=== PATIENT | female | born 1950 | race Caucasian/White ===

== ENCOUNTER → 2018-01-11 10:16 | Outpatient (CLI) | payer MEDICARE, SELFPAY ==
--- NOTE | 2018-01-11 10:19 | BI_ITS ---
MAMMOGRAPHY - BILATERAL SCREENING REASON FOR EXAM: Female, 67 years old. Routine annual screening examination. PERTINENT HISTORY: Non-contributory. Prior stereotactic biopsy. TECHNIQUE: Digital bilateral breast rufina (3D mammographic acquisition) in the CC and MLO projections. 2-D mediolateral oblique (MLO) and craniocaudad (CC) views of both breasts were obtained. CAD: Full Field Digital Mammography with Computer Added Detection was performed. COMPARISON: Comparison is made with prior outside examination dated May 13, 2016. FINDINGS: Breast Composition: There are scattered areas of fibroglandular density. There are no dominant masses or suspicious calcifications. Stable secretory calcifications. No other significant abnormalities are identified. There has been no significant change since the prior study. BI/SCREENING MAMM (CAD), BILAT IMPRESSION: Stable bilateral screening mammogram. Yearly follow-up mammogram recommended. (A) ASSESSMENT CATEGORY: BIRADS Category 2: Benign. A letter regarding these results will be sent to the patient by the facility within 30 days. Approximately 10% of breast cancers are not detected by mammography. A normal mammogram should not delay biopsy of a clinically suspicious abnormality. [id number] Electronically Signed: Michael Hood MD at 11:29 EDT Tel [phone], Service support ,
== END ==
PROVIDERS: Visit Provider Obstetrics & Gynecology
DX: Z12.31 Encounter for screening mammogram for malignant neoplasm of breast (principal)
CPT/HCPCS: 77063; 77067

== ENCOUNTER 2020-09-25 11:12 | Outpatient (RCR) | payer MEDICARE, SELFPAY ==
[2020-09-25] MEDS: COVID-19 VACC, MRNA(PFIZER)/PF 30 MCG/0.3 ML SYRINGE IM (11:04)
[2020-10-16] MEDS: COVID-19 VACC, MRNA(PFIZER)/PF 30 MCG/0.3 ML SYRINGE IM (10:54)
== END 2020-12-23 23:59 ==
LOC: IMMUN 11:12
PROVIDERS: Referring Provider Family Medicine; Visit Provider Family Medicine
DX: Z23 Encounter for immunization (principal)
CPT/HCPCS: 0001A; 0002A; 91300

== ENCOUNTER 2021-07-20 14:17 | Outpatient (CLI) | payer MEDICARE, SELFPAY ==
[2021-07-24 13:56] LABS: HPV APTIMA, High Risk Negative (Negative)
== END 2021-07-20 23:59 | disposition home or self-care (01) ==
LOC: LABSPEC 14:19
PROVIDERS: Referring Provider Obstetrics & Gynecology; Visit Provider Obstetrics & Gynecology
DX: Z12.4 Encounter for screening for malignant neoplasm of cervix (principal)
CPT/HCPCS: 87624; 88175; G0145

== ENCOUNTER 2021-08-13 09:47 | Outpatient (CLI) | payer MEDICARE, SELFPAY ==
--- NOTE | 2021-08-13 09:52 | BI_ITS ---
MAMMOGRAPHY - BILATERAL SCREENING REASON FOR EXAM: Female, 70 years old. Routine annual screening examination. PERTINENT HISTORY: Non-contributory. TECHNIQUE: Digital bilateral breast ravi (3D mammographic acquisition) in the CC and MLO projections. 2-D mediolateral oblique (MLO) and craniocaudad (CC) views of both breasts were obtained. CAD: Full Field Digital Mammography with Computer Added Detection was performed. COMPARISON: Comparison is made with prior study dated 01/11/2018. FINDINGS: Breast Composition: There are scattered areas of fibroglandular density. There are no dominant masses or suspicious calcifications. No other significant abnormalities are identified. There has been no significant change since the prior study. BI/SCRN MAMM (CAD)W/RAVI BILAT IMPRESSION: Stable bilateral screening mammogram. Yearly follow-up mammogram recommended. (A) ASSESSMENT CATEGORY: BIRADS Category 1: Negative. A letter regarding these results will be sent to the patient by the facility within 30 days. Approximately 10% of breast cancers are not detected by mammography. A normal mammogram should not delay biopsy of a clinically suspicious abnormality. [id number] Electronically Signed: Michael Hood MD at 10:55 EST ,
[2021-08-13 09:53] LABS: Absolute Lymphocyte Count 1.94 X10^3/uL (0.83-4.51); Absolute Neutrophil Count 2.4 X10^3/uL (2.0-7.7); Basophil# 0.05 X10^3/uL; Eosinophil# 0.29 X10^3/uL; Eosinophils% 5.8 % (0-5); Hematocrit 41.3 % (37-47); Hemoglobin 13.7 g/dL (12.0-15.0); Lymphocyte # 1.94 X10^3/ul (0.83-4.51); Mean Corp Hgb Conc 33.2 g/dL (32-36); Mean Corpuscular Hgb 31.4 pg (27.0-32.0); Mean Corpuscular Volume 94.7 fL (81-99); Mean Platelet Vol. 8.9 fl (6.2-12.0); Monocyte# 0.29 X10^3/uL; Monocyte% 5.8 % (0-10); NRBC Flagged by Analyzer 0 % (0-5); Neutrophil # 2.39 X10^3/uL (2.7-7.7); Neutrophil % 48.2 % (47-70); Platelet Count 277 K/mm3 (150-450); RBC Distribution Width SD 42.2 fl (35.1-43.9); Red Blood Count 4.36 M/mm3 (4.2-5.4)
--- NOTE | 2021-08-13 09:56 | BD_ITS ---
STUDY: DUAL ENERGY X-RAY ABSORPTIOMETRY / DXA REASON FOR EXAM: Female, 70 years old. Estrogen deficiency TECHNIQUE: Bone Mineral Density (BMD) measurements of lumbar spine and bilateral hips were obtained. COMPARISON: None. FINDINGS: Lumbar Spine (L1-L4): g/cm2 (0.797) / T-score (-2.3) / Z-score (-0.3) Findings are suggestive of osteopenia with a high fracture risk. Left Femur Total: g/cm2 (0.700) / T-score (-2.0) / Z-score (-0.6) Left Femoral Neck: g/cm2 (0.626) / T-score (-2.0) / Z-score (-0.3) Right Femur Total: g/cm2 (0.732) / T-score (-1.7) / Z-score (-0.3) Right Femoral Neck: g/cm2 (0.617) / T-score (-2.1) / Z-score (0.4) BD/Dexa Bone Density Study IMPRESSION: The patient is considered osteopenic as outlined below according to World [place] Organization (WHO) criteria with a high fracture risk. Reference Information: The T-score is the number of standard deviations above or below the standard which is normal for young adults at their peak bone mineral density. The World Health Organization (WHO) interprets the T-scores as follows: Above -1 Normal bone density Between -1 and -2.5 Osteopenia Equal to / or below -2.5 Osteoporosis As a practical clinical guideline, osteopenia may be graded as follows: Mild -1 through -1.5 Moderate -1.6 through -2.0 Severe -2.1 through -2.4 The Z-score is the number of standard deviations above or below age-matched controls. A Z-score of less than -1.5 would be considered abnormal. References: 1. NIH Osteoporosis and Related Bone Diseases www osteo.org 2. International Society for Clinical Densitometry www iscd.org 3. National Osteoporosis Foundation www nof.org Electronically Signed: Michael Hood MD at 15:23 EST ,
[2021-08-13 10:38] LABS: Vitamin D,25 Hydroxy 57.3 ng/mL
[2021-08-13 11:12] LABS: AST(SGOT) 13 U/L (15-37); Alanine Aminotransfer ALT/SGPT 18 U/L (13-56); Albumin, Serum 3.6 g/dL (3.2-5.0); Alkaline Phosphatase 44 U/L (45-117); Anion Gap 7 (5-15); BUN 14 mg/dL (7-18); BUN/Creat Ratio 13.5 RATIO (10-20); Calcium,Total 9.1 mg/dL (8.5-10.1); Chloride 107 mmol/L (98-107); Cholesterol 256 mg/dL (200); Creatinine, Serum 1.04 mg/dL (0.55-1.02); EST Glomerular Filtration Rate 56 mL/min (>60); Est Glom Filt Rate - Afr Amer 68 mL/min (>60); Globulin 3.5 g/dL (2.2-4.2); Glucose 88 mg/dL (74-106); High Density Lipoprotein 62 mg/dL; Potassium 4.2 mmol/L (3.5-5.1); Protein, Total 7.1 g/dL (6.4-8.2); Sodium Level 140 mmol/L (136-145); Thyroid Stim Hormone (TSH) 2.64 uIU/mL (0.358-3.74); Triglycerides 124 mg/dL; Very Low Density Lipoprotein 25 mg/dL (5-40)
== END 2021-08-13 23:59 | disposition short-term general hospital (02) ==
LOC: OPBD 09:48
PROVIDERS: Referring Provider Obstetrics & Gynecology; Visit Provider Obstetrics & Gynecology
DX: Z01.419 Encounter for gynecological examination (general) (routine) without abnormal findings (principal); Z12.31 Encounter for screening mammogram for malignant neoplasm of breast; E28.39 Other primary ovarian failure; N81.11 Cystocele, midline
CPT/HCPCS: 36415; 77063; 77067; 77080; 80053; 80061; 82306; 84443; 85025

== ENCOUNTER → 2022-02-22 | Outpatient (CLI) | payer MEDICARE, SELFPAY ==
[2022-02-22 12:08] LABS: Absolute Neutrophil Count 3.9 X10^3/uL (2.0-7.7); Basophil# 0.05 X10^3/uL; Basophil% 0.7 % (0-1); Eosinophil# 0.28 X10^3/uL; Eosinophils% 4.1 % (0-5); Hematocrit 43.1 % (37-47); Hemoglobin 14.2 g/dL (12.0-15.0); Lymphocyte % 33.3 % (19-41); Mean Corp Hgb Conc 32.9 g/dL (32-36); Mean Corpuscular Hgb 31.6 pg (27.0-32.0); Mean Corpuscular Volume 95.8 fL (81-99); Monocyte# 0.33 X10^3/uL; Monocyte% 4.8 % (0-10); NRBC Flagged by Analyzer 0 % (0-5); Neutrophil # 3.92 X10^3/uL (2.7-7.7); Neutrophil % 56.8 % (47-70); Platelet Count 330 K/mm3 (150-450); RBC Distribution Width SD 42.4 fl (35.1-43.9); White Blood Count 6.9 K/mm3 (4.4-11.0)
[2022-02-22 12:47] LABS: AST(SGOT) 15 U/L (15-37); Alanine Aminotransfer ALT/SGPT 17 U/L (13-56); Albumin, Serum 3.7 g/dL (3.2-5.0); Alkaline Phosphatase 43 U/L (45-117); Anion Gap 4 (5-15); BUN 12 mg/dL (7-18); BUN/Creat Ratio 12.1 RATIO (10-20); Calcium,Total 9.5 mg/dL (8.5-10.1); Chloride 108 mmol/L (98-107); Cholesterol 247 mg/dL (200); Creatinine, Serum 0.99 mg/dL (0.55-1.02); EST Glomerular Filtration Rate 59 mL/min (>60); Est Glom Filt Rate - Afr Amer 71 mL/min (>60); Globulin 3.6 g/dL (2.2-4.2); Glucose 101 mg/dL (74-106); High Density Lipoprotein 61 mg/dL; Potassium 4.7 mmol/L (3.5-5.1); Protein, Total 7.3 g/dL (6.4-8.2); Sodium Level 141 mmol/L (136-145); Triglycerides 142 mg/dL; Very Low Density Lipoprotein 28 mg/dL (5-40)
== END | disposition home or self-care (01) ==
LOC: BIMLAB 11:35
PROVIDERS: PCP Internal Medicine; Referring Provider Internal Medicine; Visit Provider Internal Medicine
DX: E78.5 Hyperlipidemia, unspecified (principal)
CPT/HCPCS: 36415; 80053; 80061; 85025

== ENCOUNTER → 2022-11-02 | Outpatient (CLI) | payer MEDICARE, SELFPAY ==
[2022-11-02 16:02] LABS: Bacteria 0 SEEN /hpf (None Seen); Mucous, Urine 0 SEEN /hpf (<or=2+)
[2022-11-02 16:14] LABS: Color, Urine Yellow (Yellow); Glucose, Dipstick Normal (Normal); Ketone-Dipstick Negative (Negative); Leukocyte Esterase-Dipstick 500 /ul (Negative); Nitrite-Dipstick Negative (Negative); Occult Blood-Urine 50 /ul (Negative); Protein-Dipstick 15 mg/dl (Negative); Specific Gravity, Urine 1.005 (1.002-1.030); Urine Bilirubin Dipstick Negative (Negative); Urine Clarity Clear (Clear); Urine Urobilinogen Normal (Normal); Urine pH 6.5 (5.0 - 8.0)
[2022-11-02 16:21] LABS: Red Blood Cells-Urine 0-5 SEEN /hpf (0-5); White Blood Cells 50-100 SEEN /hpf (0-5)
[2022-11-02 16:22] LABS: Squamous Epithelial Cells - UA 0-5 SEEN /hpf (5-10)
== END | disposition home or self-care (01) ==
LOC: LABSPEC 15:19
PROVIDERS: PCP Internal Medicine; Referring Provider Physician Assistant Surgical; Visit Provider Physician Assistant Surgical
DX: R35.0 Frequency of micturition (principal)
CPT/HCPCS: 81001; 87077; 87086; 87088; 87186

== ENCOUNTER → 2022-11-03 | Outpatient (CLI) | payer MEDICARE, SELFPAY ==
--- NOTE | 2022-11-03 12:53 | BI_ITS ---
MAMMOGRAPHY - BILATERAL SCREENING REASON FOR EXAM: Female, 71 years old. Routine annual screening examination. PERTINENT HISTORY: Non-contributory. Remote right stereotactic breast biopsy. TECHNIQUE: Digital bilateral breast ravi (3D mammographic acquisition) in the CC and MLO projections. 2-D mediolateral oblique (MLO) and craniocaudad (CC) views of both breasts were obtained. CAD: Full Field Digital Mammography with Computer Added Detection was performed. COMPARISON: Comparison is made with prior study dated February 10, 2022 and January 11, 2018. FINDINGS: Breast Composition: There are scattered areas of fibroglandular density. There are no dominant masses or suspicious calcifications. Stable secretory calcifications in both breasts. No other significant abnormalities are identified. There has been no significant change since the prior study. BI/SCRN MAMM (CAD)W/RAVI BILAT IMPRESSION: Stable bilateral screening mammogram. Yearly follow-up mammogram recommended. (A) ASSESSMENT CATEGORY: BIRADS Category 2: Benign. A letter regarding these results will be sent to the patient by the facility within 30 days. Approximately 10% of breast cancers are not detected by mammography. A normal mammogram should not delay biopsy of a clinically suspicious abnormality. [id number] Electronically Signed: Michael Hood MD at 13:38 EDT ,
== END | disposition home or self-care (01) ==
LOC: OPBI 12:51
PROVIDERS: PCP Internal Medicine; Referring Provider Obstetrics & Gynecology; Visit Provider Obstetrics & Gynecology
DX: Z12.31 Encounter for screening mammogram for malignant neoplasm of breast (principal)
CPT/HCPCS: 77063; 77067

== ENCOUNTER → 2023-04-13 | Outpatient (CLI) | payer MEDICARE, SELFPAY ==
--- NOTE | 2023-04-13 09:15 | MRI_ITS ---
HISTORY: low back pain, tingling rt leg and foot TECHNIQUE: Multiplanar and multisequence MR images of the lumbar spine were obtained without intravenous contrast. 0 images. COMPARISON: XR 04/11/2023. FINDINGS: VERTEBRAE: Vertebral body heights maintained. Vertebral body hemangiomas of L2 and L3 incidentally noted. Degenerative bone marrow endplate changes of L4-5 and L5-S1. ALIGNMENT: 4 mm anterolisthesis of L4-5. CONUS: Normal morphology and position of the conus medullaris at L1. INTERVERTEBRAL DISCS: T11-12: Mild disc bulge without significant central canal stenosis or foraminal narrowing based on the sagittal images. T12-L1: No significant posterior disc protrusion, central canal stenosis, or foraminal narrowing based on the sagittal images. L1-2: No significant posterior disc protrusion, central canal stenosis, or foraminal narrowing. L2-3: Mild posterior disc bulge osteophyte complex with facet arthropathy resulting in minimal narrowing of the thecal sac and mild right foraminal narrowing. L3-4: Mild disc bulge with facet arthropathy resulting in mild central canal stenosis and bilateral foraminal narrowing. L4-5: Posterior disc bulge osteophyte complex with facet arthropathy superimposed on a listhesis resulting in markedly severe central canal stenosis, probable bilateral L5 nerve root impingement, and moderate left greater than right foraminal narrowing. L5-S1: Posterior disc bulge osteophyte complex with facet arthropathy resulting in minimal narrowing of the thecal sac and moderate bilateral foraminal narrowing SOFT TISSUES: Small synovial cysts posterior to the left L4-5 and L5-S1 facet. 1.2 cm Tarlov cyst at the S2 level. 5.7 cm right renal cyst. MRI/Spine Lumbar (Routine) IMPRESSION: Multilevel degenerative disc disease with markedly severe spinal canal stenosis, probable nerve root impingement, and moderate foraminal narrowing of L4-5. Electronically Signed: Candelaria Martinez MD at 16:01 EDT ,
== END | disposition home or self-care (01) ==
PROVIDERS: PCP Internal Medicine; Referring Provider Orthopaedic Surgery; Visit Provider Orthopaedic Surgery
DX: M43.10 Spondylolisthesis, site unspecified (principal); M54.50 Low back pain, unspecified
CPT/HCPCS: 72148

== ENCOUNTER → 2023-08-17 | Outpatient (CLI) | payer MEDICARE, SELFPAY ==
[2023-08-17 12:17] LABS: Bacteria 0 SEEN /hpf (None Seen); Mucous, Urine 0 SEEN /hpf (<or=2+)
[2023-08-17 15:36] LABS: Absolute Lymphocyte Count 2.55 X10^3/uL (0.83-4.51); Basophil# 0.07 X10^3/uL; Basophil% 0.9 % (0-1); Eosinophil# 0.39 X10^3/uL; Eosinophils% 5.3 % (0-5); Hematocrit 46.2 % (37-47); Hemoglobin 14.7 g/dL (12.0-15.0); Lymphocyte # 2.55 X10^3/ul (0.83-4.51); Lymphocyte % 34.6 % (19-41); Mean Corp Hgb Conc 31.8 g/dL (32-36); Mean Corpuscular Volume 97.5 fL (81-99); Mean Platelet Vol. 9.4 fl (6.2-12.0); Monocyte# 0.35 X10^3/uL; Monocyte% 4.7 % (0-10); NRBC Flagged by Analyzer 0 % (0-5); Neutrophil % 54.2 % (47-70); Platelet Count 379 K/mm3 (150-450); RBC Distribution Width CV 11.9 % (11.6-14.6); RBC Distribution Width SD 42.8 fl (35.1-43.9); Red Blood Count 4.74 M/mm3 (4.2-5.4); White Blood Count 7.4 K/mm3 (4.4-11.0)
[2023-08-17 15:39] LABS: Color, Urine Yellow (Yellow); Glucose, Dipstick Normal (Normal); Ketone-Dipstick Negative (Negative); Leukocyte Esterase-Dipstick 500 /ul (Negative); Nitrite-Dipstick Negative (Negative); Occult Blood-Urine 25 /ul (Negative); Protein-Dipstick 15 mg/dl (Negative); Specific Gravity, Urine 1.015 (1.002-1.030); Urine Bilirubin Dipstick Negative (Negative); Urine Clarity Clear (Clear); Urine Urobilinogen Normal (Normal)
[2023-08-17 16:04] LABS: ALB/GLOB Ratio 1.1 RATIO (0.9-2.4); AST(SGOT) 14 U/L (15-37); Alanine Aminotransfer ALT/SGPT 21 U/L (13-56); Albumin, Serum 4.1 g/dL (3.2-5.0); Alkaline Phosphatase 42 U/L (45-117); Anion Gap 5 (5-15); BUN 15 mg/dL (7-18); BUN/Creat Ratio 13.9 RATIO (10-20); Chloride 105 mmol/L (98-107); Cholesterol 309 mg/dL (200); Creatinine, Serum 1.08 mg/dL (0.55-1.02); EST Glomerular Filtration Rate 53 mL/min (>60); Est Glom Filt Rate - Afr Amer 64 mL/min (>60); Globulin 3.7 g/dL (2.2-4.2); Glucose 98 mg/dL (74-106); High Density Lipoprotein 66 mg/dL; Potassium 4.8 mmol/L (3.5-5.1); Protein, Total 7.8 g/dL (6.4-8.2); Sodium Level 138 mmol/L (136-145); Triglycerides 142 mg/dL; Very Low Density Lipoprotein 28 mg/dL (5-40)
[2023-08-17 16:13] LABS: Red Blood Cells-Urine 0-5 SEEN /hpf (0-5); Squamous Epithelial Cells - UA 5-10 SEEN /hpf (5-10); White Blood Cells 0-5 SEEN /hpf (0-5)
== END | disposition home or self-care (01) ==
LOC: BIMLAB 11:58
PROVIDERS: PCP Internal Medicine; Referring Provider Physician Assistant; Visit Provider Physician Assistant
DX: Z01.818 Encounter for other preprocedural examination (principal); E78.5 Hyperlipidemia, unspecified
CPT/HCPCS: 36415; 80053; 80061; 81001; 85025

== ENCOUNTER → 2023-12-30 | Outpatient (CLI) | payer MEDICARE, SELFPAY ==
[2023-12-30 11:41] LABS: Mucous, Urine 0 SEEN /hpf (<or=2+); Squamous Epithelial Cells - UA 0 SEEN /hpf (5-10); White Blood Cells 0 SEEN /hpf (0-5)
[2023-12-30 15:41] LABS: Color, Urine Yellow (Yellow); Glucose, Dipstick Normal (Normal); Ketone-Dipstick Negative (Negative); Leukocyte Esterase-Dipstick 25 /ul (Negative); Nitrite-Dipstick Negative (Negative); Occult Blood-Urine 50 /ul (Negative); Protein-Dipstick Negative (Negative); Urine Bilirubin Dipstick Negative (Negative); Urine Clarity Clear (Clear); Urine Urobilinogen Normal (Normal)
[2023-12-30 16:02] LABS: Bacteria RARE /hpf (None Seen); Red Blood Cells-Urine 0-5 SEEN /hpf (0-5)
[2023-12-31 01:35] LABS: ALB/GLOB Ratio 1.1 RATIO (0.9-2.4); AST(SGOT) 16 U/L (15-37); Alanine Aminotransfer ALT/SGPT 20 U/L (13-56); Albumin, Serum 3.9 g/dL (3.2-5.0); Alkaline Phosphatase 69 U/L (45-117); Anion Gap 7 (5-15); BUN 14 mg/dL (7-18); BUN/Creat Ratio 14.9 RATIO (10-20); Calcium,Total 9.2 mg/dL (8.5-10.1); Chloride 104 mmol/L (98-107); Cholesterol 164 mg/dL (200); Creatinine, Serum 0.94 mg/dL (0.55-1.02); EST Glomerular Filtration Rate 63 mL/min (>60); Est Glom Filt Rate - Afr Amer 76 mL/min (>60); Globulin 3.5 g/dL (2.2-4.2); Glucose 139 mg/dL (74-106); High Density Lipoprotein 51 mg/dL; Potassium 3.8 mmol/L (3.5-5.1); Protein, Total 7.4 g/dL (6.4-8.2); Sodium Level 140 mmol/L (136-145); Triglycerides 145 mg/dL; Very Low Density Lipoprotein 29 mg/dL (5-40)
== END | disposition home or self-care (01) ==
LOC: BIMLAB 11:40
PROVIDERS: PCP Internal Medicine; Visit Provider Nurse Practitioner
DX: E78.5 Hyperlipidemia, unspecified (principal); R31.9 Hematuria, unspecified
CPT/HCPCS: 36415; 80053; 80061; 81001

== ENCOUNTER → 2024-03-12 | Outpatient (CLI) | payer MEDICARE, SELFPAY ==
[2024-03-12 15:38] LABS: Vitamin D,25 Hydroxy 42.4 ng/mL
== END | disposition home or self-care (01) ==
LOC: BIMLAB 11:33
PROVIDERS: PCP Internal Medicine; Referring Provider Internal Medicine; Visit Provider Internal Medicine
DX: M85.80 Other specified disorders of bone density and structure, unspecified site (principal)
CPT/HCPCS: 36415; 82306

== ENCOUNTER → 2024-04-06 | Outpatient (CLI) | payer MEDICARE, SELFPAY ==
--- NOTE | 2024-04-06 09:52 | BI_ITS ---
MAMMOGRAPHY - BILATERAL SCREENING REASON FOR EXAM: Female, 73 years old. Routine annual screening examination. PERTINENT HISTORY: Non-contributory. History of remote right stereotactic breast biopsy. TECHNIQUE: Digital bilateral breast ravi (3D mammographic acquisition) in the CC and MLO projections. 2-D mediolateral oblique (MLO) and craniocaudad (CC) views of both breasts were obtained. CAD: Full Field Digital Mammography with Computer Added Detection was performed. COMPARISON: Comparison is made with prior study dated November 03, 2022 and August 13, 2021. FINDINGS: Breast Composition: There are scattered areas of fibroglandular density. There are no dominant masses or suspicious calcifications. Stable bilateral secretory calcifications. No other significant abnormalities are identified. There has been no significant change since the prior study. BI/SCRN MAMM (CAD)W/RAVI BILAT IMPRESSION: Stable bilateral screening mammogram. Yearly follow-up mammogram recommended. (A) ASSESSMENT CATEGORY: BIRADS Category 2: Benign. A letter regarding these results will be sent to the patient by the facility within 30 days. Approximately 10% of breast cancers are not detected by mammography. A normal mammogram should not delay biopsy of a clinically suspicious abnormality. [id number] Electronically Signed: Michael Hood MD at 10:53 EDT ,
--- NOTE | 2024-04-06 09:52 | BD_ITS ---
STUDY: DUAL ENERGY X-RAY ABSORPTIOMETRY / DXA REASON FOR EXAM: Female, 73 years old. Post- Menopausal TECHNIQUE: Bone Mineral Density (BMD) measurements of lumbar spine and bilateral hips were obtained. COMPARISON: Comparison is made with prior study dated genera 03/02/2022. FINDINGS: Lumbar Spine (L1-L4): g/cm2 (0.744) / T-score (-2.5) / Z-score (-0.4) Findings are suggestive of osteoporosis with a high fracture risk. Left Femur Total: g/cm2 (0.689) / T-score (-2.1) / Z-score (-0.5) Left Femoral Neck: g/cm2 (0.627) / T-score (-2.0) / Z-score (-0.1) Right Femur Total: g/cm2 (0.698) / T-score (-2.0) / Z-score (-0.4) Right Femoral Neck: g/cm2 (0.618) / T-score (-2.1) / Z-score (-0.2) The T-Scores on the most recent prior examination were: Lumbar Spine (L1-L4): There has been worsening of bone density since the previous examination. Left Femur Total: which represents a worsening of 1.7%. Right Femur Total: which represents a worsening of 4.6%. BD/Dexa Bone Density Study IMPRESSION: The patient is considered osteoporotic as outlined below according to World [place] Organization (WHO) criteria with a high fracture risk. There has been worsening of bone density since the previous examination. Reference Information: The T-score is the number of standard deviations above or below the standard which is normal for young adults at their peak bone mineral density. The World Health Organization (WHO) interprets the T-scores as follows: Above -1 Normal bone density Between -1 and -2.5 Osteopenia Equal to / or below -2.5 Osteoporosis As a practical clinical guideline, osteopenia may be graded as follows: Mild -1 through -1.5 Moderate -1.6 through -2.0 Severe -2.1 through -2.4 The Z-score is the number of standard deviations above or below age-matched controls. A Z-score of less than -1.5 would be considered abnormal. References: 1. NIH Osteoporosis and Related Bone Diseases www osteo.org 2. International Society for Clinical Densitometry www iscd.org 3. National Osteoporosis Foundation www nof.org Electronically Signed: Michael Hood MD at 13:10 EDT ,
== END | disposition home or self-care (01) ==
LOC: OPBD 09:51
PROVIDERS: PCP Internal Medicine; Referring Provider Internal Medicine; Visit Provider Internal Medicine
DX: Z12.31 Encounter for screening mammogram for malignant neoplasm of breast (principal); Z78.0 Asymptomatic menopausal state
CPT/HCPCS: 77063; 77067; 77080

== ENCOUNTER 2024-04-13 07:11 | Day surgery (SDC) | payer MEDICARE, SELFPAY ==
[2024-04-13] VITALS (7 sets, daily range): BP systolic 97–106; BP diastolic 63–72; PULSE 64–87; RESP 16; TEMP 36.2–36.9; O2SAT 98–100; BMI 20.7
--- NOTE | 2024-04-13 07:34 | PCM.PRE.AN2 ---
ASA Classification* ASA Classification ASA Classification: 2 Assessment & Plan Anesthesia* Anesthesia Assessment Anesthesia Assessment: Discussed sedation and/or anesthesia options, risks, benefits, and alternatives with patient/parents/legal guardian/POA. Questions invited. The patient/parents/legal guardian/POA seems to understand and agrees to proceed with anesthesia plan. Reviewed the physical assessment, medical history, allergy history and patient home medications list prior to surgery/procedure/anesthetic and documented any changes. Performed airway and anesthesia risk assessments. Anesthesia Type Anesthesia Type: MAC Anesthesia Focused Assessment* Airway Assessment Mouth opens: >3 cm Mallampati Score: II Focused Labs Anesthesia Preop lab: CBC WBC 7.4 K/mm3 (4.4-11.0) 08/17/23 11:58 RBC 4.74 M/mm3 (4.2-5.4) 08/17/23 11:58 Hgb 14.7 g/dL (12.0-15.0) 08/17/23 11:58 Hct 46.2 % (37-47) 08/17/23 11:58 Plt Count 379 K/mm3 (150-450) 08/17/23 11:58 CHEMISTRY Potassium 3.8 mmol/L (3.5-5.1) 12/30/23 11:40 Sodium 140 mmol/L (136-145) 12/30/23 11:40 BUN 14 mg/dL (7-18) 12/30/23 11:40 Creatinine 0.94 mg/dL (0.55-1.02) 12/30/23 11:40 Glucose 139 mg/dL (74-106) H 12/30/23 11:40 TSH 2.64 uIU/mL (0.358-3.74) 08/13/21 09:45 COAG Pre-Assessment Diagnosis/Proposed Procedure Planned Operative Procedure(s): COLONOSCOPY-OA Anesthesia History Anesthesia History - pin inserter regulator: Anesthesia History - pin inserter regulator Hx Hospitalization Yes: 10/2023 BACK SURGERY 04/11/24 10:43 Any Problems With Anesthesia No 04/11/24 10:43 Cholinesterase deficiency No 04/11/24 10:43 You/Your Family Experience No 04/11/24 10:43 fever (hyperthermia) with Relationship Recent Exposure to Contagious Disease Does patient have nerve No 04/11/24 10:43 stimulator Patient instructed to have device shut off --Does patient have Pacemaker or ICD? When Was Last Pacemaker Check QUESTION #4 FULL TEXT: You/Your Family Experience fever (hyperthermia) with Anesthesia Last Oral Intake Last Oral intake: Last Oral Intake NPO since Meds taken in AM with sips of water? Meds patient instructed to take am of surgery PONV PONV - pin inserter regulator: PONV - pin inserter regulator Female Yes 04/11/24 10:43 HX of Motion Sickness No 04/11/24 10:43 HX of N/V After Surgery No 04/11/24 10:43 Non-Smoker Yes 04/11/24 10:43 Duration of Surgery greater No 04/11/24 10:43 than 60 minutes Number of Risk Factors 2 04/11/24 10:43 PONV Score Moderate Risk 04/11/24 10:43 Height & Weight Height & Weight: Anesthesia: Height & Weight Height 5 ft 03/30/24 10:00 Respiratory Assessment Respiratory Assessment - pin inserter regulator: Respiratory Tract Infection Hx - pin inserter regulator Hx Respiratory Tract Infection No 04/11/24 10:43 STOP Sleep Apnea STOP Sleep Apnea - pin inserter regulator: STOP Sleep Apnea - pin inserter regulator Hx Hypertension No 04/11/24 10:43 Hx Sleep Apnea No 04/11/24 10:43 CPAP BIPAP Do you snore loudly (louder No 04/11/24 10:43 than talking or can be heard Do you often feel tired/ No 04/11/24 10:43 fatigued/ sleepy during daytime? Has anyone observed you stop No 04/11/24 10:43 breathing during sleep? STOP Results Negative 04/11/24 10:43 QUESTION #5 FULL TEXT : Do you snore loudly (louder than talking or can be heard through closed doors)? 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 Specify any problems Hx of Preganancy in last 3 No 04/11/24 10:43 Months Nurse Filling Out Transfusion VCHRISTIN 04/11/24 10:43 & Questions: Date: 04/11/24 04/11/24 10:43 Time: 10:44 04/11/24 10:43 Patient unable to answer at this time (ie. confused, unrespo /Reproduction History /Reproductive History - pin inserter regulator: /Reproductive Hx- pin inserter regulator Hx Now Gestational Age (in weeks): EDC: Hx Hx Para Hx Section SAB No 03/15/24 15:33 Active Medications Active Medications: Current Medications Generic Name Dose Route Start Last Admin Trade Name Freq PRN Reason Stop Dose Admin Lactated Ringer's 1,000 mls @ 15 mls/hr 04/13/24 07:30 IV .Q48H JACOB PFSH Medical History (Updated 04/11/24 @ 10:43 by Justyna Nunez) Wears glasses Post-menopausal Back pain Non-smoker Osteoporosis Health care maintenance Osteopenia with high risk of fracture Vertigo Colon cancer screening Impacted cerumen of both ears History of one miscarriage CKD (chronic kidney disease), stage III Bowel incontinence Female bladder prolapse Hyperlipidemia Abnormal Pap smear of cervix Home Medications ?Medication ?Instructions ?Recorded ?Last Taken ?Type calcium carbonate (Calcium 500) 500 mg PO BID 04/11/23 Unknown History cholecalciferol (vitamin D3) 10 10 mcg PO DAILY 04/11/23 Unknown History mcg (400 unit) capsule rosuvastatin 10 mg tablet 10 mg PO DAILY #90 tabs 02/02/24 Unknown Rx gabapentin 300 mg capsule 300 mg PO PRN PAIN 03/12/24 Unknown History Allergy/AdvReac Type Severity Reaction Status Date / Time No Known Allergies Allergy Verified 04/13/24 07:27 Family History Father Heart disease Diabetes Parkinsons Kidney disease Myocardial infarction Renal failure Mother Liver cancer Surgical History (Updated 04/11/24 @ 10:43 by Justyna Nunez) Hx of dilation and curettage History of back surgery Hx of colonoscopy S/P tonsillectomy Social History household members: none housing: apartment current occupational status: retired sexually active: Yes Smoking Status: Never smoker alcohol intake: current alcohol intake frequency: holidays/special occasions only details: occasionally substance use type: does not use caffeine: Yes what type of physical activity do you participate in: none, walking and yoga frequency: 3-4 times per week seatbelt use: always do you feel safe at home: Yes additional social history: -Patient is retired Review of Systems (Anesthesia) ROS Narrative System reviewed and no additional complaints, except as documented.
[2024-04-13] MEDS: Lactated Ringers 1,000 ML 15 ML IV (07:44)
--- NOTE | 2024-04-13 08:05 | HP.PCM_ITS ---
[facility] - General General Date of Admission: 04/13/24 Date of Service: 04/13/24 Chief Complaint: Colon cancer screening HPI Narrative JEANA HARTMAN, is a 73 F who presents screening colonoscopy. Her last colonoscopy was about 10 years ago. No polyps were noted at that time. No family history of colon polyps or colon cancers. No symptoms. FORMERLY [facility], [facility] Medical History Wears glasses Post-menopausal Back pain Non-smoker Osteoporosis Health care maintenance Osteopenia with high risk of fracture Vertigo Colon cancer screening Impacted cerumen of both ears History of one miscarriage CKD (chronic kidney disease), stage III Bowel incontinence Female bladder prolapse Hyperlipidemia Abnormal Pap smear of cervix Home Medications ?Medication ?Instructions ?Recorded ?Last Taken ?Type calcium carbonate (Calcium 500) 500 mg PO BID 04/11/23 Unknown History cholecalciferol (vitamin D3) 10 10 mcg PO DAILY 04/11/23 Unknown History mcg (400 unit) capsule rosuvastatin 10 mg tablet 10 mg PO DAILY #90 tabs 02/02/24 Unknown Rx gabapentin 300 mg capsule 300 mg PO PRN PAIN 03/12/24 Unknown History Allergy/AdvReac Type Severity Reaction Status Date / Time No Known Allergies Allergy Verified 04/13/24 07:27 Family History Father Heart disease Diabetes Parkinsons Kidney disease Myocardial infarction Renal failure Mother Liver cancer Surgical History Hx of dilation and curettage History of back surgery Hx of colonoscopy S/P tonsillectomy Social History household members: none housing: apartment current occupational status: retired sexually active: Yes Smoking Status: Never smoker alcohol intake: current alcohol intake frequency: holidays/special occasions only details: occasionally substance use type: does not use caffeine: Yes what type of physical activity do you participate in: none, walking and yoga frequency: 3-4 times per week seatbelt use: always do you feel safe at home: Yes additional social history: -Patient is retired Vital Signs Vital Signs Vital Signs: 04/13/24 07:32 04/13/24 07:32 Temperature 98.5 F Temperature Source Temporal Pulse Rate 69 Respiratory Rate 16 Respiratory Pattern Normal Blood Pressure 100/65 Blood Pressure Mean 76 Blood Pressure Source Monitor Blood Pressure Position Semi-Fowlers Blood Pressure Location Right Arm Pulse Ox 99 Oxygen Delivery Method Room Air Weight Weight: 106 lb 0.677 oz Body Mass Index (BMI) 20.7 Physical Exam Narrative She is alert and oriented x 3. No acute distress. Head is normocephalic and atraumatic. Pupils are equal round and reactive to light. Abdomen is soft nontender nondistended Assessment & Plan Assessment/Plan (1) Colon cancer screening: PLAN: Plan The patient is a 73-year-old female who presents today for elective colonoscopy. No previous history of polyps. She only had 1 prior colonoscopy and that was 10 years ago. We discussed the details of the planned procedure including risks benefits and alternatives. She wishes to proceed. Procedure will begin momentarily. Charges/Coding Visit Charges Inpatient E&M: 43669 Init Hosp L1
--- NOTE | 2024-04-13 08:15 | COLBX_PTH ---
PATIENT: JEANA HARTMAN LOC: EN U#:[id number] AGE/SX: 73/F ROOM: RE04/13/[address]: Dr. Tim Dela Cruz MD : 1950 BED: DIS: 04/13/2024 SPEC #: [id number] RECD: 04/13/24 12:35 STATUS: DEMETRIUS SOTO #: [id number] DANNY: 04/13/24 08:[address]: Tim Dela Cruz DEPT: SURGICAL PATHOLOGY RECD BY: Vaishali Bliss ENTERED: 04/13/24 14:05 SP TYPE: COLON BX OTHR DR: Dr. Fritz Eugene MD Tissues: Sigmoid colon biopsy Procedures: Surgery Specimen Level IV HEADER OPERATION: Colonoscopy with polypectomy PRE-OP DIAGNOSIS: Screening TISSUE SUBMITTED: Sigmoid colon polyp MICROSCOPIC DIAGNOSIS Sigmoid colon polyp, polypectomy: Hyperplastic polyp. 04/16/2024 MICROSCOPIC DESCRIPTION Slides are reviewed. GROSS DESCRIPTION Received in fixative is one container labeled with the patient's name and designated Sigmoid colon polyp. The specimen consists of one irregular fragment of light rodriguez soft tissue that measures 0.3 x 0.3 x 0.1 cm. The specimen is totally submitted in one cassette. 04/13/2024 TC:1 CPT:50733
--- NOTE | 2024-04-13 09:04 | OP.COLON_ITS ---
Patient Name: Kristin Main Procedure Date: 04/13/2024 8:01 AM Date of : 1950 Age: 73 Procedure: Colonoscopy Indications: Screening for colorectal malignant neoplasm Providers: Tim Dela Cruz MD Medicines: Propofol per Anesthesia Patient Profile: Refer to note in patient chart for documentation of history and physical. Last Colonoscopy: 10 years ago. Complications: No immediate complications. Estimated blood loss: Minimal. Procedure: Pre-Anesthesia Assessment: - Prior to the procedure, a History and Physical was performed, and patient medications and allergies were reviewed. The patient's tolerance of previous anesthesia was also reviewed. The risks and benefits of the procedure and the sedation options and risks were discussed with the patient. All questions were answered, and informed consent was obtained. Prior Anticoagulants: The patient has taken no anticoagulant or antiplatelet agents. ASA Grade Assessment: II - A patient with mild systemic disease. After reviewing the risks and benefits, the patient was deemed in satisfactory condition to undergo the procedure. After I obtained informed consent, the scope was passed under direct vision. Throughout the procedure, the patient's blood pressure, pulse, and oxygen saturations were monitored continuously. The adult colonoscope was introduced through the anus and advanced to the cecum, identified by appendiceal orifice and ileocecal valve. The ileocecal valve, appendiceal orifice, and rectum were photographed. The entire colon was well visualized. The colonoscopy was performed without difficulty. The patient tolerated the procedure well. The quality of the bowel preparation was adequate. Moderate Sedation: See the other procedure note for documentation of moderate sedation with intraservice time. Scope In: 8:19:20 AM Scope Withdrawal Time 0 hours 9 minutes 47 seconds Scope Out: 8:56:10 AM Total Procedure Duration Time 0 hours 36 minutes 50 seconds Findings: The perianal and digital rectal examinations were normal. A 2 mm polyp was found in the sigmoid colon. The polyp was hyperplastic. The polyp was removed with a cold biopsy forceps. Resection and retrieval were complete. Verification of patient identification for the specimen was done by the registered veterinary technician using the patient's name, date and medical record number. Estimated blood loss was minimal. The exam was otherwise without abnormality on direct and retroflexion views. Impression: - One 2 mm polyp in the sigmoid colon, removed with a cold biopsy forceps. Resected and retrieved. - The examination was otherwise normal on direct and retroflexion views. Recommendation: - Discharge patient to home (ambulatory). - High fiber diet. - Discharge patient to home (ambulatory). - High fiber diet indefinitely. - Await pathology results. - Repeat colonoscopy in 5 years for surveillance based on pathology results. - Return to my office PRN. - Continue present medications. Procedure Code(s): --- Professional --- 34500, Colonoscopy, flexible; with biopsy, single or multiple Diagnosis Code(s): --- Professional --- D12.5, Benign neoplasm of sigmoid colon Z12.11, Encounter for screening for malignant neoplasm of colon CPT copyright 2021 [employer]. All rights reserved. The codes documented in this report are preliminary and upon associate director of nursing review may be revised to meet current compliance requirements. Tim Dela Cruz MD 04/13/2024 9:04:20 AM This report has been signed electronically. Number of Addenda: 0 Note Initiated On: 04/13/2024 8:01 AM
--- NOTE | 2024-04-13 09:04 | OP.CCLET_ITS ---
04/13/2024 Fritz Eugene MD [address] [place] [address] [place] [address] Re : Colonoscopy procedure for Kristin Main Dear Dr. Eugene This procedure was performed on Saturday, April 13, 2024. My impressions and recommendations are as follows: Impressions : - One 2 mm polyp in the sigmoid colon, removed with a cold biopsy forceps. Resected and retrieved. - The examination was otherwise normal on direct and retroflexion views. Recommendations : - Discharge patient to home (ambulatory). - High fiber diet. - Discharge patient to home (ambulatory). - High fiber diet indefinitely. - Await pathology results. - Repeat colonoscopy in 5 years for surveillance based on pathology results. - Return to my office PRN. - Continue present medications. My findings are described in the full procedure note, which is enclosed. If I can be of further assistance, please feel free to contact me at . Sincerely, Tim Dela Cruz MD 04/13/2024 9:04:20 AM This report has been signed electronically.
--- NOTE | 2024-04-13 09:08 | PCM.POST.ANE ---
Anesthesia: Postop Eval I Current Vital Signs Temperature: 97.3 F Pulse Rate: 74 Blood Pressure: 103/72 Respiratory Rate: 16 Pulse Ox: 98 Oxygen Delivery Method: Room Air Assessment Airway patent: Yes Spontaneous unlabored respirations: Yes Mental status: Awake and Calm nausea: No Vomiting: No Anesthesia Complication: No Fluid Hydration Crystalloid volume administer (ml): 800 Total IV fluid infused: 800 Progress Note Anesthesia document: Postop Eval 1 completed: Yes
--- NOTE | 2024-04-13 09:48 | PCM.POSTANE2 ---
Anesthesia Postop Eval I Sum Postop Eval Completion status Anesthesia document: Postop Eval 1 completed: Yes Anesthesia Postop Eval I Summary Anesthesia Postop Eval I Summary: Anesthesia Postop Eval I: Assessment Summary Airway patent Yes 04/13/24 09:10 [email or web address] Spontaneous unlabored Yes 04/13/24 09:10 [email or web address] respirations Mental status Awake,Calm 04/13/24 09:10 [email or web address] nausea No 04/13/24 09:10 [email or web address] Vomiting No 04/13/24 09:10 [email or web address] Anesthesia Postop Eval I: Fluid Summary Crystalloid volume administer 800 04/13/24 09:10 [email or web address] (ml) Colloids volume administered ( ml) Blood Product volume administered (ml) Total IV fluid infused 800 04/13/24 09:10 [email or web address] Anesthesia Postop Eval I: Summary Notes Anesthesia Complication No 04/13/24 09:10 [email or web address] Anesthesia Complication Comment: Post-operative progress note Anesthesia: Postop Eval II Evaluation Mental status: Awake Pain Level: 0 nausea: No Vomiting: No
== END 2024-04-13 09:52 | disposition home or self-care (01) ==
LOC: EN 07:13 → AC 07:14
PROVIDERS: PCP Internal Medicine; Referring Provider Internal Medicine; Visit Provider Surgery
PROC: 0DJD8ZZ Inspection of Lower Intestinal Tract, Via Natural or Artificial Opening Endoscopic (ICD-10-PCS; CPT 45378; principal; 2024-04-13 08:10)
DX: Z12.11 Encounter for screening for malignant neoplasm of colon (principal); N18.30 Chronic kidney disease, stage 3 unspecified; Z80.0 Family history of malignant neoplasm of digestive organs; E78.5 Hyperlipidemia, unspecified; D12.5 Benign neoplasm of sigmoid colon
CPT/HCPCS: 45380; 88305; J7120; J2405

== ENCOUNTER → 2025-02-02 | Outpatient (CLI) | payer MEDICARE, SELFPAY ==
--- OUTSIDE RECORDS SUMMARY | 2025-02-04 07:33 | XMS RPT_ITS | CCD ---
Author Organization [facility] Team Providers Care Chief Wellness Officer Name Role Phone Care Physician, No Primary Primary Care Provider Unavailable Care Physician, No Primary Referring Provider Un available Dr. rFitz Eugene Attending Provider [phone] Dr. Fritz Eugene Primary Care Provider [phone] Dr. Fritz Eugene Referring Provider [phone] SAMARA Pop Attending Provider Dr. Fritz Eugene Primary Care Provider [phone] Dr. Fritz Eugene Referring Provider [phone] Dr. Tulio Ames Attending Provider SAMARA Tatum Attending Provider [phone] Unavailable Primary Care Provider Unavailabl e Oleghe, Efewongbe Primary Care Unavailable Amanda Medina Attending Unavailable Oleghe, Efewongbe Referring Unavailable Avelino Medina Attending Unavailable Oleghe, Efewongbe Primary Care Unavailable Oleghe, Efewongbe Primary Care Unavailable Ricki Tatum Attending Unavailable Oleghe, Efewongbe Referring Unavailable Oleghe, Efewongbe Primary Care Unavailable Tim Dela Cruz Attending Unavailable Oleghe, Efewongbe Referring Unavailable Oleghe, Efewongbe Primary Care Unavailable Oleghe, Efewongbe Attending Unavailable Oleghe, Efewongbe Referring Unavailable Oleghe, Efewongbe Primary Care Unavailable Oleghe, Efewongbe Attending Unavailable Oleghe, Efewongbe Referring Unavailable Oleghe, Efewongbe Primary Care Unavailable More Rai Attending Unavailable Ricki Tatum Attending Unavailable Ricki Tatum Referring Unavailable Oleghe, Efewongbe Primary Care Unavailable Ricki Tatum Attending Unavailable Fritz Eugene Primary Care Unavailable Valorie, Efdaiongbe Referring Unavailable Valorie Fritz Primary Care Unavailable ValorieJoaquinalison Attending Unavailable Kassie, Efdaiongbe Referring Unavailable Ricki Tatum Attending Unavailable Valorie, Efdaiongbe Primary Care Unavailable Oleratnae, Efewongbe Referring Unavailable Valorie, Efewongbe Referring Unavailable Tim Dela Cruz Consulting Unavailable Tim Dela Cruz Attending Unavailable Jethrochai Stellabe Primary Care Unavailable Valorie YOUNG, Dr. Hu Primary Care Provider Valorie YOUNG, Dr. Hu Referring Provider [phone] Fabiola Posada Attending Provider Medications Current Medications Medication Drug Class(es) Dates Sig (Normalized) Sig (Original) calcium carbonate 1250 mg chewable tablet (2 sources) Start: 04-11-2023 take 1 tablet by mouth twice daily Calcium Carbonate (Calcium 500) 500 mg calcium (1,250 mg) tablet,chewable Active 500 mg PO TWICE A DAY April 11, 2023 12:00am Start: 04-11-2023 take 1 tablet by esteban th once daily Calcium Carbonate (Calcium 500) 500 mg calcium (1,250 mg) tablet,chewable Active 500 MG PO DAILY April 10, 2023 11:00pm cholecalciferol 0.01 mg oral capsule (2 sources) Vitamin D Start: 04-11-2023 take 1 capsule by mouth once daily Cholecalciferol (Vitamin D3) 10 mcg (400 unit) capsule Active 10 ug PO DAILY April 11, 2023 12:00am nitrofurantoin, macrocrystals 25 mg / nitrofurantoin, monohydrate 75 mg oral capsule (5 sources) Nitrofuran Antibacterial Start: 02-02-2025 take 1 capsule by mouth every twelve hours at mealtime Nitrofurantoin Monohyd/M-Cryst (Macrobid) 100 mg capsule Active 100 mg PO Q12H 10 5 0 February 02, 2025 12:00am February 06, 2025 12:00am must administer with a meal/food Start: 12-17-2022 End: 12-24-2022 take 1 capsule by mouth every twelve hours at mealtime Nitrofurantoin Monohyd/M-Cryst (Macrobid) 100 mg capsule Discontinued 100 mg PO Q12H 14 7 0 December 17, 2022 12:00am December 23, 2022 12:00am December 24, 2022 12:04am administer with a meal/food; swallow whole; do not open, crush, dissolve , or chew rosuvastatin calcium 10 mg oral tablet (5 sources) HMG-CoA Reductase Inhibitor Start: 08-18-2023 End: 09-05-2024 take 1 tablet by mouth once daily Rosuvastatin 10 mg tablet Active 10 mg PO DAILY 90 September 05, 2024 12:59pm Completed/Discontinued Medications Medication Drug Class(es) Dates Sig (Normalized) Sig (Original) acetaminophen 500 mg oral tablet (2 sources) Start: 04-20-2023 End: 04-11-2024 take 1 tablet by mouth every six hours as needed Acetaminophen (Tylenol Extra Strength) 500 mg tablet Discontinued 500 mg PO EVERY 6 HOURS as needed April 20, 2023 12:00am April 11, 2024 10:37am acetaminophen 325 mg / HYDROcodone bitartrate 5 mg oral tablet (2 sources) Opioid Agonist Start: 06-17-2023 End: 06-27-2023 Hydrocodone-Acetaminop hen 5-325 mg tablet Discontinued 1 {tbl} PO Q8H as needed for pain 30 10 June 17, 2023 June 26, 2023 1:00am June 27, 2023 1:04am Spinal stenosis of lumbar region with radiculopathy Degenerative spondylolisthesis Spinal stenosis, lumbar region without neurogenic claudication Radiculopathy, lumbar region Spondylolisthesis, site unspecified Start: 06-17-2023 End: 06-27-2023 take 1 tablet by mouth every eight hours Hydrocodone-Acetaminophen Discontinued 1 TABLET PO Q8H 30 June 17, 2023 June 27, 2023 12:04am calcium carbonate 1500 mg / cholecalciferol 0.01 mg oral capsule (4 sources) Vitamin D Start: 02-27-2018 End: 02-28-2023 Calcium Carbonate-Vitamin D3 (Calcium 600 With Vitamin D3) 600 mg(1,500mg) -400 unit capsule Discontinued NMA PO 0 February 27, 2018 12:00am February 28, 2023 1:42pm Start: 02-27-2018 End: 02-28-2023 Calcium Carbonate-Vitamin D3 (Calcium 600 With Vitamin D3) 600 mg(1,500mg) -400 unit capsule Discontinued CAP PO February 26, 2018 11:00pm February 28, 2023 12:42pm cinnamon bark 500 mg oral capsule (4 sources) Start: 02-27-2018 End: 02-28-2023 Cinnamon Bark (Cinnamon) 500 mg capsule Discontinued mg PO 0 February 27, 2018 12:00am February 28, 2023 1:42pm gabapentin 300 mg oral capsule (1 source) Anti-epileptic Agent Start: 03-12-2024 End: 07-30-2024 Gabapentin 300 mg capsule Discontinued 300 mg PO NEEDED March 12, 2024 12:00am July 30, 2024 10:26am PAIN sulfamethoxazole 800 mg / trimethoprim 160 mg oral tablet (3 sources) Dihydrofolate Reductase Inhibitor Antibacterial, Sulfonamide Antimicrobial Start: 11-02-2022 End: 11-09-2022 Sulfamethoxazole- Trimethoprim (Bactrim Ds) 800-160 mg tablet Discontinued 1 {tbl} PO Q12H 14 7 0 November 02, 2022 12:00am November 08, 2022 12:00am November 09, 2022 12:04am vitamin b6 100 mg oral tablet (4 sources) Start: 02-27-2018 End: 02-28-2023 take 1 tablet by mouth once Pyridoxine (Vitamin B6) 100 mg tablet Discontinued 100 mg PO ONCE February 27, 2018 12:00am February 28, 2023 1:42pm Problems Active Problems Problem Classification Problem Date Documented Da te Episodic/Chronic Chronic kidney disease (5 sources) Chronic kidney disease stage 3; Translations: [Stage 3 chronic kidney disease] Chronic Conditions associated with dizziness or vertigo (1 source) Vertigo; Translations: [Dizziness and giddiness] 03-12-2024 Episodic Disorders of lipid metabolism (6 sources) Hyperlipidemia; Translations: [Hyperlipidemia, unspecified] Onset: 01-06-2024 Chronic Genitourinary symptoms and ill-defined conditions (1 source) Blood in urine; Translations: [Hematuria, unspecified] 12-22-2023 Episodic Osteoporosis (2 sources) Age-related osteoporosis without current pathological fracture; Translations: [Osteoporosis] Onset: 07-30-2024 07-30-2024 Chronic Other acquired deformities (2 sources) Degenerative spondylolisthesis; Translations: [Spondylolisthesis, site unspecified] 04-11-2023 Episodic Other acquired deformities (1 source) Spondylolisthesis, site unspecified; Translations: [Acquired spondylolisthesis] 07-20-2023 Episodic Other bone disease and musculoskeletal deformities (1 source) Osteopenia with high fracture risk; Translations: [Other specified disorders of bone density and structure, unspecified site] 03-12-2024 Episodic Other congenital anomalies (1 source) Herniated urinary bladder 02-22-2022 Chronic Other ear and sense organ disorders (2 sources) Impacted cerumen; Translations: [Impacted cerumen, bilateral] 02-28-2023 Episodic Other ear and sense organ disorders (1 source) Excessive cerumen in ear canal ; Translations: [Impacted cerumen, bilateral] 04-02-2024 Episodic Other gastrointestinal disorders (4 sources) Incontinence of feces; Translations: [Full incontinence of feces] 02-22-2022 Episodic Other gastrointestinal disorders (1 source) Full incontinence of feces; Translations: [Full incontinence of feces] Episodic Other screening for suspected conditions (not mental disorders or infectious disease) (4 sources) Encounter for screening for malignant neoplasm of colon; Translations: [Encounter for screening mammogram for malignant neoplasm of breast] Onset: 04-27-2024 03-12-2024 Episodic Prolapse of female genital organs (5 sources) Cystocele; Translations: [Cystocele, unspecified] Chronic Comment on above: discussed pessary vs surgical management would need TVHBS combo case with wyneski Spondylosis; intervertebral disc disorders; other back problems (5 sources) Spinal stenosis of lumbar region; Translations: [Spinal stenosis, lumbar region without neurogenic claudication] 04-20-2023 Episodic Unclassified (4 sources) Herniated urinary bladder; Translations: [Cystocele] Urinary tract infections (4 sources) Cystitis; Translations: [Cystitis, unspecified without hematuria] 11-02-2022 Episodic Past or Other Problems Problem Classification Problem Date Documented Da te Episodic/Chronic Other bone disease and musculoskeletal deformities (1 source) Other specified disorders of bone density and structure, unspecified site; Translations: [Other specified disorders of bone density and structure, unspecified site] Onset: 03-23-2024 Episodic Other ear and sense organ disorders (1 source) Impacted cerumen, bilateral; Translations: [Impacted cerumen, bilateral] Onset: 03-21-2024 Episodic Residual codes; unclassified (1 source) Asymptomatic menopausal state; Translations: [Asymptomatic menopausal state] Onset: 03-12-2024 Episodic Results Test Name Value Interpretation Reference Range Facility Endocrinology Visit Reporton 07-30-2024 Endocrinology Visit Report [facility] [address] [place] [address] OFFICE VISIT Date of Service: 07/30/24 MR#: [id number] Acct: [id number] Name: KRISTIN MAIN Rep #: [id number] : 1950 Provider: Michael Hu Age/Sex: 73/F [place] [facility] [place]: Signed Intake Vital Signs 04/13/24 07:32 07/30/24 09:24 Height 5 ft 5 ft Weight: 112 lb 4 oz BMI 21.9 BP 125/75 H Blood Pressure Location Rt brachial Position Sitting Pulse 73 Pulse Source Monitor Pulse Oximetry (%) 98 Oxygen Delivery Method room air Intake Visit Reasons: Osteoporosis Chief Complaint: ear check Is patient in pain?: No Allergies No Known Allergies Allergy (Verified 07/30/24 09:25) Medications ???Medication ???Instructions ???Recorded ???Confirmed ???Type calcium carbonate (Calcium 500) 500 mg PO BID 04/11/23 07/09/24 History cholecalciferol (vitamin D3) 10 10 mcg PO DAILY 04/11/23 07/09/24 History mcg (400 unit) capsule rosuvastatin 10 mg tablet 10 mg PO DAILY #90 tabs 02/02/24 07/09/24 Rx Have you fallen in the past year?: No PFSH Medical History Wears glasses Post-menopausal Back pain Non-smoker Osteoporosis Health care maintenance Osteopenia with high risk of fracture Vertigo Colon cancer screening Impacted cerumen of both ears History of one miscarriage CKD (chronic kidney disease), stage III Bowel incontinence Female bladder prolapse Hyperlipidemia Abnormal Pap smear of cervix Surgical History Hx of dilation and curettage History of back surgery Hx of colonoscopy S/P tonsillectomy Family History Father Heart disease Diabetes Parkinsons Kidney disease Myocardial infarction Renal failure Mother Liver cancer Social History household members: none housing: apartment current occupational status: retired sexually active: Yes Smoking Status: Never smoker alcohol intake: current alcohol intake frequency: holidays/special occasions only details: occasionally substance use type: does not use caffeine: Yes what type of physical activity do you participate in: none, walking and yoga frequency: 3-4 times per week seatbelt use: always do you feel safe at home: Yes additional social history: -Patient is retired Female Reproductive History Menstrual Ab spontaneous: 1 HPI HPI KRISTIN MAIN, is a 73 F who presents to the office today for evaluation and management of osteoporosis. Lumbar Spine (L1-L4): g/cm2 (0.744) / T-score (-2.5) / Z-score (-0.4) Findings are suggestive of osteoporosis with a high fracture risk. Left Femur Total: g/cm2 (0.689) / T-score (-2.1) / Z-score (-0.5) Left Femoral Neck: g/cm2 (0.627) / T-score (-2.0) / Z-score (-0.1) Right Femur Total: g/cm2 (0.698) / T-score (-2.0) / Z-score (-0.4) Right Femoral Neck: g/cm2 (0.618) / T-score (-2.1) / Z-score (-0.2) The T-Scores on the most recent prior examination were: Lumbar Spine (L1-L4): There has been worsening of bone density since the previous examination. Left Femur Total: which represents a worsening of 1.7%. Right Femur Total: which represents a worsening of 4.6%. Calcium 9.2, vitamin D 42 eGFR 63 Current Symptoms: denies loss of height, heartburn, nausea, frequent falls or unsteady gait/balance Nutritional Status: Yes: Cottage Cheese (200mg), Yes: Yogurt (450mg), Yes: Cheese (250mg), Yes: Broccoli (180mg), Yes: Spinach (240mg), Yes: Beans (75-140mg), Yes: Almonds (80mg), Yes: takes ashlyn cim and Yes: takes OTC vitamin D and No: Milk (300mg), No: Cereal (250mg) and No: Sardines (250mg) Risk Factors: denies tobacco use, denies alcohol 2 drinks per day or more, denies prior fracture, denies history of parental fracture, denies glucocorticoids, denies Rheumatoid Arthritis, has history of age is greater than 65 and has history of weight is less than 127 pounds Pertinent treatment/medication history: prior estrogen use (OCP 20s, no HRT) Osteoporosis/Bone Results: Calcium Level 9.2 mg/dL (8.5-10.1) Albumin 3.9 g/dL (3.2-5.0) Vitamin D 25-Hydroxy 42.4 ng/mL ROS Const Constitutional: No fatigue, frequent falls or weight change Eyes Eyes: No change in vision ENT ENT: No dizziness/vertigo Cardio Cardiology: No chest pain at rest, chest pain with exertion, shortness of breath or palpitations Musc Musculoskeletal: No loss of height Neuro Neurology: No unsteady gait/balance or frequent falls Psych Psychiatric: No anxiety and No depression Wilfred/Lymp Hematologic/Lymphatic : No easy bruising Resp Respiratory: No cough, hemopty (more content not included)... Normal Colonoscopy Reporton 024 Colonoscopy Report [facility] Medical Records Department [address] [place] [id number] Colonoscopy Report MR#: [id number] Acct: [id number] Name: KRISTIN MAIN Rep #: [id number] : 1950 73 From: Tim Dela Cruz MD PCP: Dr. Fritz Eugene MD [place] [facility] Name: Kristin Main Procedure Date: 04/13/2024 8:01 AM Date of : 1950 Age: 73 Procedure: Colonoscopy Indications: Screening for colorectal malignant neoplasm Providers: Tim Dela Cruz MD Medicines: Propofol per Anesthesia Patient Profile: Refer to note in patient chart for documentation of history and physical. Last Colonoscopy: 10 years ago. Complications: No immediate complications. Estimated blood loss: Minimal. Procedure: Pre-Anesthesia Assessment: - Prior to the procedure, a History and Physical was performed, and patient medications and allergies were reviewed. The patient's tolerance of previous anesthesia was also reviewed. The risks and benefits of the procedure and the sedation options and risks were discussed with the patient. All questions were answered, and informed consent was obtained. Prior Anticoagulants: The patient has taken no anticoagulant or antiplatelet agents. ASA Grade Assessment: II - A patient with mild systemic disease. After reviewing the risks and benefits, the patient was deemed in satisfactory condition to undergo the procedure. After I obtained informed consent, the scope was passed under direct vision. Throughout the procedure, the patient's blood pressure, pulse, and oxygen saturations were monitored continuously. The adult colonoscope was introduced through the anus and advanced to the cecum, identified by appendiceal orifice and ileocecal valve. The ileocecal valve, appendiceal orifice, and rectum were photographed. The entire colon was well visualized. The colonoscopy was performed without difficulty. The patient tolerated the procedure well. The quality of the bowel preparation was adequate. Moderate Sedation: See the other procedure note for documentation of moderate sedation with intraservice time. Scope In: 8:19:20 AM Scope Withdrawal Time 0 hours 9 minutes 47 seconds Scope Out: 8:56:10 AM Total Procedure Duration Time 0 hours 36 minutes 50 seconds Findings: The perianal and digital rectal examinations were normal. A 2 mm polyp was found in the sigmoid colon. The polyp was hyperplastic. The polyp was removed with a cold biopsy forceps. Resection and retrieval were complete. Verification of patient identification for the specimen was done by the reactor technician using the patient's name, date and medical record number. Estimated blood loss was minimal. The exam was otherwise without abnormality on direct and retroflexion views. Impression: - One 2 mm polyp in the sigmoid colon, removed with a cold biopsy forceps. Resected and retrieved. - The examination was otherwise normal on direct and retroflexion views. Recommendation: - Discharge patient to home (ambulatory). - High fiber diet. - Discharge patient to home (ambulatory). - High fiber diet indefinitely. - Await pathology results. - Repeat colonoscopy in 5 years for surveillance based on pathology results. - Return to my office PRN. - Continue present medications. Procedure Code(s): --- Professional --- 00820, Colonoscopy, flexible; with biopsy, single or multiple Diagnosis Code(s): --- Professional --- D12.5, Benign neoplasm of sigmoid colon Z12.11, Encounter for screening for malignant neoplasm of colon CPT copyright 2021 [employer]. All rights reserved. The codes documented in this report are preliminary and upon toe puller review may be revised to meet current compliance requirements. Tim Dela Cruz MD 04/13/2024 9:04:20 AM This report has been signed electronically. Number of Addenda: 0 Note Initiated On: 04/13/2024 8:01 AM 04/13/24903 Date Tim Dela Cruz MD Cosigner Signature: Date (if indicated) CC: Dr. Fritz Eugene MD; Dr. Tim Dela Cruz MD Date Dictated: 04/13/24 08 Date Transcribed: Application Counselor: TAYLOR Queen [facility] MR/POSTOP.NAZARIO 04-13-2024 MR/POSTOP.[facility] Medical Records Department [address] [place] [address] Anesthesia Postop Eval I 04/13/24 0908 MR#: [id number] Acct: [id number] Name: KRISTIN MAIN Rep #: [id number] : 1950 73 From: Edinson León PCP: Dr. Fritz Eugene MD Status:REG [facility]C Y Race: C Location: [place] [address] Anesthesia: Postop Eval I Current Vital Signs Temperature: 97.3 F Pulse Rate: 74 Blood Pressure: 103/72 Respiratory Rate: 16 Pulse Ox: 98 Oxygen Delivery Method: Room Air Assessment Airway patent: Yes Spontaneous unlabored respirations: Yes Mental status: Awake and Calm nausea: No Vomiting: No Anesthesia Complication: No Fluid Hydration Crystalloid volume administer (ml): 800 Total IV fluid infused: 800 Progress Note Anesthesia document: Postop Eval 1 completed: Yes 04/13/24909 Date Edinson Peraltanavdeepmichelle Signature: Date CC: Signed Normal MR/[id number] 04-13-2024 MR/POSTOPAN2 [facility] Medical Records Department [address] [place] [address] Anesthesia Postop Eval II 04/13/2448 MR#: [id number] Acct: [id number] Name: KRISTIN MAIN Rep #: [id number] : 1950 73 From: Jason Childers MD PCP: Dr. Fritz Eugene MD [place] [facility] [place] Race: C Location: [place] [address] Anesthesia Postop Eval I Sum Postop Eval Completion status Anesthesia document: Postop Eval 1 completed: Yes Anesthesia Postop Eval I Summary Anesthesia Postop Eval I Summary: Anesthesia Postop Eval I: Assessment Summary Airway patent Yes 04/13/24 09:10 [email or web address] Spontaneous unlabored Yes 04/13/24 09:10 [email or web address] respirations Mental status Awake,Calm 04/13/24 09:10 [email or web address] nausea No 04/13/24 09:10 [email or web address] Vomiting No 04/13/24 09:10 [email or web address] Anesthesia Postop Eval I: Fluid Summary Crystalloid volume administer 800 04/13/24 09:10 [email or web address] (ml) Colloids volume administered ( ml) Blood Product volume administered (ml) Total IV fluid infused 800 04/13/24 09:10 [email or web address] Anesthesia Postop Eval I: Summary Notes Anesthesia Complication No 04/13/24 09:10 [email or web address] Anesthesia Complication Comment: Post-operative progress note Anesthesia: Postop Eval II Evaluation Mental status: Awake Pain Level: 0 nausea: No Vomiting: No 04/13/2448 Date Jason Martin Signature: Date CC: Signed Normal Surgery Specimen Level Kadi 04-13-2024 Surgery Specimen Level IV -------- Patient Age/Sex Location Account Attending Physician -------- KRISTIN MAIN 73/F EN [id number] Dr. Tmi Dela Cruz MD -------- Specimen: [id number] Received: 09/27/24-1235 Status: DEMETRIUS De Dios Num: [id number] Spec Type: COLON BX Subm Dr: Dr. Tim Dela Cruz MD HEADER OPERATION: Colonoscopy with polypectomy PRE-OP DIAGNOSIS: Screening TISSUE SUBMITTED: Sigmoid colon polyp -------- MICROSCOPIC DIAGNOSIS Sigmoid colon polyp, polypectomy: Hyperplastic polyp. . 04/16/2024 MICROSCOPIC DESCRIPTION Slides are reviewed. GROSS DESCRIPTION Received in fixative is one container labeled with the patient's name and designated Sigmoid colon polyp. The specimen consists of one irregular fragment of light rodriguez soft tissue that measures 0.3 x 0.3 x 0.1 cm. The specimen is totally submitted in one cassette. IVY. 04/13/2024 TC:1 CPT:35840 -------- Patient Age/Sex Location Account Attending Physician -------- KRISTIN MAIN 73/F EN [id number] Dr. Tim Dela Cruz MD -------- Signed (signature on file) Dr. Jasiel Carranza MD 04/16/24 1049 -------- Normal Comment on above: Performed By: #### P SUIV #### Laboratory [address] [place], [place], [id number] Dexa Bone Density Studyon Dexa Bone Density Study [facility] Imaging Services [address] [place], [place] [address] Dexa Bone Density Study MR#: [id number] Acct: [id number] Name: KRISTIN MAIN Rep #: [id number] : 1950 F 73 From: Michael rashid MD PCP: Dr. Fritz Eugene MD Status: [facility] Study: Dexa Bone Density Study Date of Exam: 04/06/24 Exam# [id number] Ordering Dr: Fritz Eugene MD [id number] STUDY: DUAL ENERGY X-RAY ABSORPTIOMETRY / DXA REASON FOR EXAM: Female, 73 years old. Post- Menopausal TECHNIQUE: Bone Mineral Density (BMD) measurements of lumbar spine and bilateral hips were obtained. COMPARISON: Comparison is made with prior study dated genera 03/02/2022. FINDINGS: Lumbar Spine (L1-L4): g/cm2 (0.744) / T-score (-2.5) / Z-score (-0.4) Findings are suggestive of osteoporosis with a high fracture risk. Left Femur Total: g/cm2 (0.689) / T-score (-2.1) / Z-score (-0.5) Left Femoral Neck: g/cm2 (0.627) / T-score (-2.0) / Z-score (-0.1) Right Femur Total: g/cm2 (0.698) / T-score (-2.0) / Z-score (-0.4) Right Femoral Neck: g/cm2 (0.618) / T-score (-2.1) / Z-score (-0.2) The T-Scores on the most recent prior examination were: Lumbar Spine (L1-L4): There has been worsening of bone density since the previous examination. Left Femur Total: which represents a worsening of 1.7%. Right Femur Total: which represents a worsening of 4.6%. BD/Dexa Bone Density Study IMPRESSION: The patient is considered osteoporotic as outlined below according to [place] (WHO) criteria with a high fracture risk. There has been worsening of bone density since the previous examination. Reference Information: The T-score is the number of standard deviations above or below the standard which is normal for young adults at their peak bone mineral density. The World Health Organization (WHO) interprets the T-scores as follows: Above -1 Normal bone density Between -1 and -2.5 Osteopenia Equal to / or below -2.5 Osteoporosis As a practical clinical guideline, osteopenia may be graded as follows: Mild -1 through -1.5 Moderate -1.6 through -2.0 Severe -2.1 through -2.4 The Z-score is the number of standard deviations above or below age-matched controls. A Z-score of less than -1.5 would be considered abnormal. References: 1. NIH Osteoporosis and Related Bone Diseases www osteo.org 2. International Society for Clinical Densitometry www iscd.org 3. National Osteoporosis Foundation www nof.org Electronically Signed: Michael Hood MD at 13:10 EDT , CC: Dr. Fritz Eugene MD Application Counselor: Signed Normal SCRN MAMM (CAD)W/RAVI BILATo n 04-06-2024 SCRN MAMM (CAD)W/RAVI BILAT [facility] Imaging Services [address] [place] [address] SCRN MAMM (CAD)W/RAVI BILAT MR#: [id number] Acct: [id number] Name: KRISTIN MAIN Rep #: [id number] : 1950 F 73 From: Michael rashid MD PCP: Dr. Fritz Eugene MD Status: REG CL Study: SCRN MAMM (CAD)W/RAVI BILAT Date of Exam: 03/19 Exam# [id number] Ordering Dr: Fritz Eugene MD [id number] MAMMOGRAPHY - BILATERAL SCREENING REASON FOR EXAM: Female, 73 years old. Routine annual screening examination. PERTINENT HISTORY: Non-contributory. History of remote right stereotactic breast biopsy. TECHNIQUE: Digital bilateral breast ravi (3D mammographic acquisition) in the CC and MLO projections. 2-D mediolateral oblique (MLO) and craniocaudad (CC) views of both breasts were obtained. CAD: Full Field Digital Mammography with Computer Added Detection was performed. COMPARISON: Comparison is made with prior study dated November 03, 2022 and August 13, 2021. FINDINGS: Breast Composition: There are scattered areas of fibroglandular density. There are no dominant masses or suspicious calcifications. Stable bilateral secretory calcifications. No other significant abnormalities are identified. There has been no significant change since the prior study. BI/SCRN MAMM (CAD)W/RAVI BILAT IMPRESSION: Stable bilateral screening mammogram. Yearly follow-up mammogram recommended. (A) ASSESSMENT CATEGORY: BIRADS Category 2: Benign. A letter regarding these results will be sent to the patient by the facility within 30 days. Approximately 10% of breast cancers are not detected by mammography. A normal mammogram should not delay biopsy of a clinically suspicious abnormality. [id number] Electronically Signed: Michael Hood MD at 10:53 EDT Reading Location ID and State: [facility] / [place] , Service support , CC: Dr. Fritz Eugene MD Application Counselor: Signed Normal Internal Medicine Office Vis syed 03-30-2024 Internal Medicine Office Visit [facility] [place], [place] [id number] OFFICE VISIT Date of Service: 03/30/24 MR#: [id number] Acct: [id number] Name: KRISTIN MAIN Rep #: [id number] : 1950 Provider: SAMARA Huddleston Age/Sex: 73/F [place] [facility] Status: Signed Intake Vital Signs 03/15/24 10:11 03/15/24 15:33 03/30/24 10:00 Height 5 ft 5 ft 5 ft Weight: 106 lb 108 lb 2 oz BMI 20.7 21.1 BP 118/60 Blood Pressure Location Lt brachial Position Sitting Respiration 16 Pulse 63 Pulse Source Monitor Temp 97.9 F Temp Source Temporal Pulse Oximetry (%) 99 Oxygen Delivery Method room air Intake Visit Reasons: ACUTE FU FOR EAR WAX Chief Complaint: ear check Concierge 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 Required: No Accompanied by: Self Is patient in pain?: No Allergies No Known Allergies Allergy (Verified 03/30/24 09:59) Medications ???Medication ???Instructions ???Recorded ???Confirmed ???Type calcium carbonate (Calcium 500) 500 mg PO DAILY 04/11/23 03/30/24 History cholecalciferol (vitamin D3) 10 10 mcg PO DAILY 04/11/23 03/30/24 History mcg (400 unit) capsule acetaminophen 500 mg tablet 500 mg PO Q6H PRN 04/20/23 03/30/24 History (Tylenol Extra Strength) rosuvastatin 10 mg tablet 10 mg PO DAILY #90 tabs 02/02/24 03/30/24 Rx gabapentin 300 mg capsule 300 mg PO TID 03/12/24 03/30/24 History Have you fallen in the past year?: No PFSH Medical History Health care maintenance Osteopenia with high risk of fracture Vertigo Colon cancer screening Impacted cerumen of both ears History of one miscarriage CKD (chronic kidney disease), stage III Bowel incontinence Female bladder prolapse Hyperlipidemia Abnormal Pap smear of cervix Surgical History Hx of colonoscopy S/P tonsillectomy Family History Father Heart disease Diabetes Parkinsons Kidney disease Myocardial infarction Renal failure Mother Liver cancer Social History household members: none housing: apartment current occupational status: retired sexually active: Yes Smoking Status: Never smoker alcohol intake: current alcohol intake frequency: holidays/special occasions only details: occasionally substance use type: does not use caffeine: Yes what type of physical activity do you participate in: none, walking and yoga frequency: 3-4 times per week seatbelt use: always do you feel safe at home: Yes additional social history: -Patient is retired Female Reproductive History Menstrual Ab spontaneous: 1 HPI HPI Chief Complaint: ear check Details: KRISTIN MAIN, is a 73 F who presents to the office today for recheck of her for follow-up on bilateral ear wax. Patient has had earwax removed previously and actually recently had in the office. She states that she was having some dizziness which she thought could have been from the wax at the same time was thought to be more from a vertigo and that this was very positional. She was just told to follow-up after the removal for the earwax. Patient states she is not currently having any symptoms. She has no decrease in her hearing and has not had the episodic dizziness that she was having previously. So again patient is here for follow-up as well as recommended. ROS Const Constitutional: No body ache, chills, excessive sweating, fatigue, fever(s), frequent falls, headache(s), snoring, weakness or change in appetite Eyes Eyes: No blurry vision, change in vision, eye pain or Light sensitivity ENT ENT: No abnormal hearing, ear or mastoid pain, tinnitus, nasal congestion, headache(s), neck pain or sore throat Resp Respiratory: No cough, shortness of breath, snoring or wheezing Cardio Cardiology: No chest pain at rest, chest pain with exertion, excessive sweating, dyspnea on exertion, lightheadedness, orthopnea or palpitations Gastro GI: No abdominal pain, change in bowel habits, constipation, cramping, diarrhea, nausea/dyspepsia or vomiting Genitourinary-Female: No burning urination, painful urination, urinary incontinence or urinary frequency Musc Musculoskeletal: No abnormal gait, joint pain, back pain, limited range of motion, muscle weakness, neck pain or numbness Skin Skin: No dry skin, redness, lesions, itchy eyes, rash or wounds Neuro Neurology: No abnormal gait, abnormal hearing, weakness, frequent falls, headache(s), memory loss or numbness Psych Psychiatric: No anxiety, No change in appetite, No depression, No memory loss and No Thoughts of harming yourself/Others Endo Endocrine: No cold intolerance, excessive sweating, fatigue, flushing, heat intolerance, incr (more content not included)... Normal Internal Medicine Office Vis syed 03-15-2024 Internal Medicine Office Visit [facility] [place] [address] [place] [address] OFFICE VISIT Date of Service: 03/15/24 MR#: [id number] Acct: [id number] Name: KRISTIN MAIN Rep #: [id number] : 1950 Provider: KEAGAN NURSE Age/Sex: 73/F [place] [facility] Status: Signed Intake Vital Signs 03/12/24 10:22 Height 5 ft Weight: 109 lb BMI 21.2 BP 132/78 H Blood Pressure Location Lt brachial Position Sitting Respiration 14 Pulse 63 Pulse Source Monitor Temp 98.5 F Temp Source Temporal Pulse Oximetry (%) 99 Oxygen Delivery Method room air Intake Visit Reasons: ear check Chief Complaint: ear check Allergies No Known Allergies Allergy (Verified 03/15/24 10:08) Have you fallen in the past year?: No PFSH Medical History Health care maintenance Osteopenia with high risk of fracture Vertigo Colon cancer screening Impacted cerumen of both ears History of one miscarriage CKD (chronic kidney disease), stage III Bowel incontinence Female bladder prolapse Hyperlipidemia Abnormal Pap smear of cervix Surgical History (Updated 03/15/24 @ 10:07 by Amanda Medina) Hx of colonoscopy S/P tonsillectomy Family History Father Heart disease Diabetes Parkinsons Kidney disease Myocardial infarction Renal failure Mother Liver cancer Social History (Updated 03/15/24 @ 10:08 by Amanda Medina) household members: none housing: apartment current occupational status: retired sexually active: Yes Smoking Status: Never smoker alcohol intake: current alcohol intake frequency: holidays/special occasions only details: occasionally substance use type: does not use caffeine: Yes what type of physical activity do you participate in: none, walking and yoga frequency: 3-4 times per week seatbelt use: always do you feel safe at home: Yes additional social history: -Patient is retired Female Reproductive History Menstrual Ab spontaneous: 1 HPI HPI Chief Complaint: ear check Details: KRISTIN MAIN, is a 73 F who presents to the office today for Office Procedures Cerumen Removal Procedure BMS Cerumen Removal Procedure Procedure performed by: Pura Sheridan Method of removal: irrigation From which ear canal was the cerumen removed: bilateral Amount of Cerumen: moderate Patient tolerated procedure: well Additional Details: pt reports using debrox twice daily for the past several days. pt states that she put debrox drops in this am before coming to her nurse visit, small amount of cerumen noted removed during flushing however large clumps of cerumen remain in ear canal. pt reports she can hear better and has less dizziness than before the flushes, PA and PCP messaged regarding remaining cerumen amounts in ear canals. Coding Level of Care Code Off vis,est,level 1 Assessment and Plan Assessment and Plan Orders: Orders Cerumen Rem[place] [facility] [place]/15/[place] H61.23 - Impacted cerumen, bilateral Clinical Quality Measures Falls Risk Screening/Assistive Devices Have you fallen in the past year?: No 03/20/24 1218 Date Ricki Peraltaignmichelle Signature: Date (if applicable) CC: Normal Internal Medicine Office Vis iton 03-12-2024 Internal Medicine Office Visit [facility] [address] [place] [address] [place] [address] OFFICE VISIT Date of Service: 03/12/24 MR#: [id number] Acct: [id number] Name: KRISTIN MAIN Rep #: [id number] : 1950 Provider: Dr. Fritz evans MD Age/Sex: 73/F Location: [facility] Status: Signed Intake Vital Signs 08/17/23 10:55 03/12/24 10:22 Height 5 ft 5 ft Weight: 109 lb BMI 21.2 BP 132/78 H Blood Pressure Location Lt brachial Position Sitting Respiration 14 Pulse 63 Pulse Source Monitor Temp 98.5 F Temp Source Temporal Pulse Oximetry (%) 99 Oxygen Delivery Method room air Intake Visit Reasons: MED FU Chief Complaint: Follow-up chronic conditions Concierge 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 Required: No Is patient in pain?: No Allergies No Known Allergies Allergy (Verified 03/12/24 10:15) Medications ???Medication ???Instructions ???Recorded ???Confirmed ???Type calcium carbonate (Calcium 500) 500 mg PO DAILY 04/11/23 03/12/24 History cholecalciferol (vitamin D3) 10 10 mcg PO DAILY 04/11/23 03/12/24 History mcg (400 unit) capsule acetaminophen 500 mg tablet 500 mg PO Q6H PRN 04/20/23 03/12/24 History (Tylenol Extra Strength) rosuvastatin 10 mg tablet 10 mg PO DAILY #90 tabs 02/02/24 03/12/24 Rx gabapentin 300 mg capsule 300 mg PO TID 03/12/24 03/12/24 History Have you fallen in the past year?: No PFSH Medical History (Updated 03/12/24 @ 17:[address] Fritz Eugene MD) Health care maintenance Osteopenia with high risk of fracture Vertigo Colon cancer screening Impacted cerumen of both ears History of one miscarriage CKD (chronic kidney disease), stage III Bowel incontinence Female bladder prolapse Hyperlipidemia Abnormal Pap smear of cervix Surgical History S/P tonsillectomy Family History Father Heart disease Diabetes Parkinsons Kidney disease Myocardial infarction Renal failure Mother Liver cancer Social History household members: none housing: apartment current occupational status: unemployed sexually active: Yes Smoking Status: Never smoker alcohol intake: current alcohol intake frequency: holidays/special occasions only details: occasionally substance use type: does not use caffeine: Yes what type of physical activity do you participate in: none, walking and yoga frequency: 3-4 times per week seatbelt use: always do you feel safe at home: Yes additional social history: -Patient is retired Female Reproductive History Menstrual Ab spontaneous: 1 HPI HPI Chief Complaint: Follow-up chronic conditions Details: KRISTIN MAIN, is a 73 F who presents to the office today for Follow-up of her chronic conditions. Also has some concerns. Lately, she states that she has had intermittent episodes of dizziness with changing position. Has been taking an [id number] antihistamine which she found somewhat helpful. No pain, drainage, chills, fever or otherwise feeling of unwell. Status post recent spinal surgery. Surgery was uneventful. Review of her chart shows a bone density scan 2 years ago suggestive of osteopenia with high fracture risk. No recent fracture however, during her surgery, she states that there was concern for significant osteoporosis. Has been taking calcium and vitamin D supplements. Other chronic medical conditions are largely stable. ROS Const Constitutional: No body ache, chills, excessive sweating, fatigue, fever(s), frequent falls, headache(s), snoring, weakness, sleep problems or change in appetite Eyes Eyes: No blurry vision, change in vision, floaters, visual disturbances, eye pain or Light sensitivity ENT ENT: No abnormal hearing, ear or mastoid pain, tinnitus, balance problems, nosebleed/epistaxis, nasal congestion, headache(s), neck pain or sore throat Resp Respiratory: No cough, excessive phlegm production, pain on inspiration, shortness of breath, snoring or wheezing Cardio Cardiology: No chest pain at rest, chest pain with exertion, excessive sweating, shortness of breath, dyspnea on exertion, lightheadedness, orthopnea or palpitations Gastro GI: No abdominal pain, change in bowel habits, constipation, cramping, diarrhea, nausea/dyspepsia or vomiting Genitourinary-Female: No burning urination, painful urination, urinary incontinence, urinary frequency, suprapubic fullness, abnormal vaginal bleeding or pelvic pain Musc Musculoskeletal: No abnormal gait, joint pain, back pain, limited range of motion, neck pain or numbness Skin Skin: No dry skin, redness, lesions, itchy eyes, rash or wounds Neuro Neurology: Positive for dizziness; No abnormal gai (more content not included)... Normal Vitamin D,25 Hydroxyon 03-12 Vitamin D 25-OH 42.4 ng/mL Normal Comment on above: Result Comment: [place] min D 25(OH) Status Range Deficiency <20 ng/mL (50nmol/L) Insufficiency 20 - 30 ng/mL (50 - 75 nmol/L) Sufficiency 30 - 100 ng/mL (75 - 250 nmol/L) Toxicity >100 ng/mL (>250 nmol/L) Performed By: #### L 506.1000 #### Laboratory [address] [place], [address] Comprehensive Metabolic Prof ilon 2023 Albumin [Mass/Vol] 3.9 g/dL Normal 3.2-5.0 [facility] Comment on above: Performed By: #### L 500.4050, L400.0001, L500.4100 #### Laboratory [address] [place], [address] Albumin/Globulin [Mass ratio] 1.1 {ratio} Normal 0.9-2.4 Comment on above: Performed By: #### L 500.4050, L400.0001, L500.4100 #### Laboratory [address] [place], [address] ALK P 69 U/L Normal 45-117 Comment on above: Performed By: #### L 500.4050, L400.0001, L500.4100 #### Laboratory [address] [place], [address] ALT [Catalytic activity/Vol] 20 U/L Normal 13-56 Comment on above: Performed By: #### L 500.4050, L400.0001, L500.4100 #### Laboratory [address] [place], [address] AST [Catalytic activity/Vol] 16 U/L Normal 15-37 Comment on above: Performed By: #### L 500.4050, L400.0001, L500.4100 #### Laboratory [address] [place], [address] Bilirubin [Mass/Vol] 0.60 mg/dL Normal 0.20-1.00 [facility] Comment on above: Result Comment: For patients on eltrombopag therapy, use of Dimension Lyons TBIL is not recommended. Performed By: #### L 500.4050, L400.0001, L500.4100 #### [facility] [address] [place], [address] BUN/CRE 14.9 RATIO Normal 10-20 Comment on above: Performed By: #### L 500.4050, L400.0001, L500.4100 #### Laboratory [address] [place], [address] CA,Total 9.2 mg/dL Normal 8.5-10.1 Comment on above: Performed By: #### L 500.4050, L400.0001, L500.4100 #### Laboratory [address] [place], [address] Chloride [Moles/Vol] 104 mmol/L Normal 98-107 [facility] Comment on above: Performed By: #### L 500.4050, L400.0001, L500.4100 #### Laboratory [address] [place], [address] CO2 [Moles/Vol] 29.0 mmol/L Normal 21.0-32.0 Comment on above: Performed By: #### L 500.4050, L400.0001, L500.4100 #### Laboratory [address] [place], [address] Creatinine [Mass/Vol] 0.94 mg/dL Normal 0.55-1.02 [facility] Comment on above: Result Comment: The validity of the calculated GFR GFRAA in patients over 70 years has not been determined. Clinical correlation is essential. Performed By: #### L 500.4050, L400.0001, L500.4100 #### Laboratory [address] [place], [address] EST GFR - AA 76 mL/min Normal >60 Comment on above: Result Comment: Afri can Montserratian GFR Calc Performed By: #### L 500.4050, L400.0001, L500.4100 #### Laboratory [address] [place], [address] GAP 7 Normal 5-15 Comment on above: Performed By: #### L 500.4050, L400.0001, L500.4100 #### Laboratory [address] [place], [address] GFR/1.73 sq M.predicted among non-blacks MDRD (S/P/Bld) [Vol rate/Area] 63 mL/min/{1.73_m2} Normal >60 Comment on above: Result Comment: Non- GFR Calc Performed By: #### L 500.4050, L400.0001, L500.4100 #### Laboratory [address] [place], [address] Globulin (S) [Mass/Vol] 3.5 g/dL Normal 2.2-4.2 [facility] Comment on above: Performed By: #### L 500.4050, L400.0001, L500.4100 #### Laboratory [address] [place], [address] Glucose [Mass/Vol] 139 mg/dL High 74-106 [facility] Comment on above: Result Comment: Fast ing Glucose result greater than or equal to 126 mg/dL suggests DIABETES MELLITUS per A.D.A. criteria. Performed By: #### L 500.4050, L400.0001, L500.4100 #### Laboratory [address] [place], [address] Potassium [Moles/Vol] 3.8 mmol/L Normal 3.5-5.1 [facility] Comment on above: Performed By: #### L 500.4050, L400.0001, L500.4100 #### Laboratory [address] [place], [address] Sodium [Moles/Vol] 140 mmol/L Normal 136-145 [facility] Comment on above: Performed By: #### L 500.4050, L400.0001, L500.4100 #### Laboratory [address] [place], [address] T PROT 7.4 g/dL Normal 6.4-8.2 Comment on above: Performed By: #### L 500.4050, L400.0001, L500.4100 #### Laboratory [address] [place], [address] Urea nitrogen [Mass/Vol] 14 mg/dL Normal 7-18 Comment on above: Performed By: #### L 500.4050, L400.0001, L500.4100 #### Laboratory [address] [place], [address] Lipid Profileon 2023 Cholesterol [Mass/Vol] 164 mg/dL Normal 200 [facility] Comment on above: Result Comment: <200 mg/dL Desirable 200-240 mg/dL Borderline >240 mg/dL High Risk Performed By: #### L 500.4050, L400.0001, L500.4100 #### Laboratory [address] [place], [address] Cholesterol in HDL [Mass/Vol] 51 mg/dL Normal Comment on above: Result Comment: The drugs N-Acetylcysteine and Metamizole may falsely depress this assay. Reference Range HDL <40 mg/dL Low HDL Cholesterol HDL >or= 60 mg/dL High HDL Cholesterol Performed By: #### L 500.4050, L400.0001, L500.4100 #### Laboratory [address] [place], [address] Cholesterol in LDL [Mass/Vol] 84 mg/dL Normal 0-130 Comment on above: Performed By: #### L 500.4050, L400.0001, L500.4100 #### Laboratory [address] [place], [address] Cholesterol in VLDL [Mass/Vol] 29 mg/dL Normal 5-40 Comment on above: Performed By: #### L 500.4050, L400.0001, L500.4100 #### Laboratory [address] [place], [address] Triglyceride [Mass/Vol] 145 mg/dL Normal [facility] Comment on above: Result Comment: The drugs N-Acetylcysteine and Metamizole may falsely depress this assay. Serum Triglycerides Reference Interval Normal <150 mg/dL Borderline high 150 - 199 mg/dL High 200 - 499 mg/dL Very High > or = 500 mg/dL Performed By: #### L 500.4050, L400.0001, L500.4100 #### Laboratory [address] [place], [address] Urinalysis, Completeon 12-29 BACTERIA RARE Normal None Seen Comment on above: Order Comment: MAUREEN CTOR TO SPECIFY Performed By: #### L 500.4050, L400.0001, L500.4100 #### Laboratory [address] [place], [address] RBC 0-5 SEEN Normal 0-5 Comment on above: Order Comment: MAUREEN CTOR TO SPECIFY Performed By: #### L 500.4050, L400.0001, L500.4100 #### Laboratory [address] [place], [address] EPI,SQUAMOUS 0 SEEN Normal 5-10 Comment on above: Order Comment: MAUREEN CTOR TO SPECIFY Performed By: #### L 500.4050, L400.0001, L500.4100 #### Laboratory [address] [place], [address] Mucus Ql (Urine sed) 0 SEEN Normal [facility] Comment on above: Order Comment: COLLE CTOR TO SPECIFY Performed By: #### L 500.4050, L400.0001, L500.4100 #### Laboratory [address] [place], [address] WBC 0 SEEN Normal 0-5 Comment on above: Order Comment: COLLE CTOR TO SPECIFY Performed By: #### L 500.4050, L400.0001, L500.4100 #### Laboratory [address] [place], [address] 36on 09-16-2023 36 SURGERY: [facility] FOR DR Haider VANEGAS OPEN & CLOSE ALIF L4-5, L5-S1 DATE OF SURGERY: 10/28/23 AT 7:[address] ZAVALA AUTH #: [employer], CHARDA WITH DR. VANEGAS'S OFFICE IS OBTAINING PRIOR AUTH FOR DR. ZAVALA AND DR. VANEGAS. 10/06/23-Jae Munoz with Dr. Vanegas's office approved Auth#[id number] [facility] Absolute lymphocyte countOrd ered By: Ricki Quinn on 08-17-2023 Lymphocytes Auto (Unsp spec) [#/Vol] 2.55 10*3/uL 0.83-4.51 Automated lymphocyte count a s percentage of total leukocytesOrdered By: Ricki Quinn on 08-17-2023 Lymphocytes/100 WBC Auto (Unsp spec) 34.6 % 19-41 Basophil percentageOrdered B y: Ricki Quinn on 08-17-2023 Basophil percentage 0-5 SEEN /hpf 0-5 [facility] Basophils/100 WBC (Bld) 0.9 % 0-1 [facility] Bilirubin [Mass/Vol] 0.80 mg/dL 0.20-1.00 [facility] Comment on above: For patients on eltr ombopag therapy, use of Dimension Lyons TBIL is not recommended. Chloride [Moles/Vol] 105 mmol/L 98-107 [facility] Cholesterol [Mass/Vol] 309 mg/dL <200 [facility] Comment on above: <200 mg/dL Desirable 200-240 mg/dL Borderline >240 mg/dL High Risk Eosinophils/100 WBC (Bld) 5.3 % 0-5 Glucose [Mass/Vol] 98 mg/dL 74-106 [facility] Hemoglobin (Bld) [Mass/Vol] 14.7 g/dL 12.0-15.0 Monocytes/100 WBC (Bld) 4.7 % 0-10 [facility] Neutrophils (Bld) [#/Vol] 4.0 10*3/uL 2.0-7.7 Neutrophils/100 WBC (Bld) 54.2 % 47-70 Potassium [Moles/Vol] 4.8 mmol/L 3.5-5.1 [facility] Protein [Mass/Vol] 7.8 g/dL 6.4-8.2 [facility] Sodium [Moles/Vol] 138 mmol/L 136-145 [facility] Triglyceride [Mass/Vol] 142 mg/dL <199 [facility] Comment on above: The drugs N-Acetylcy steine and Metamizole may falsely depress this assay.Serum Triglycerides Reference Interval Normal <150 mg/dL Borderline high 150 - 199 mg/dL High 200 - 499 mg/dL Very High > or = 500 mg/dL WBC (Bld) [#/Vol] 7.4 10*3/uL 4.4-11.0 [facility] Bilirubin Test strip Ql (U)O rdered By: Ricki Quinn on 08-17-2023 Bilirubin Ql (U) Negative Negative CBC W/Diff, Automatedon 07-20 Absolute Lymph 2.55 X10 3/uL Normal 0.83-4.51 Comment on above: Performed By: #### L 500.4050, L500.4100, L100.0100 #### Laboratory [address] [place], [place], [id number] Absolute Neut 4.0 X10 3/uL Normal 2.0-7.7 Comment on above: Performed By: #### L 500.4050, L500.4100, L100.0100 #### Laboratory [address] [place], [address] Basophils/100 WBC (Bld) 0.9 % Normal 0-1 [facility] Comment on above: Performed By: #### L 500.4050, L500.4100, L100.0100 #### Laboratory [address] [place], [address] Eosinophils/100 WBC (Bld) 5.3 % High 0-5 Comment on above: Performed By: #### L 500.4050, L500.4100, L100.0100 #### Laboratory [address] [place], [address] Erythrocyte distribution width (RBC) [Ratio] 11.9 % Normal 11.6-14.6 Comment on above: Performed By: #### L 500.4050, L500.4100, L100.0100 #### Laboratory [address] [place], [address] Hematocrit (Bld) [Volume fraction] 46.2 % Normal 37-47 Comment on above: Performed By: #### L 500.4050, L500.4100, L100.0100 #### Laboratory [address] [place], [address] Hemoglobin (Bld) [Mass/Vol] 14.7 g/dL Normal 12.0-15.0 Comment on above: Performed By: #### L 500.4050, L500.4100, L100.0100 #### Laboratory [address] [place], [address] IG% 0.300 Normal 0.0-0.9 Comment on above: Result Comment: IG% - Immature Granulocytes (promyelocytes, myelocytes and metamyelocytes) > 1% indicates that a LEFT SHIFT is Present. Performed By: #### L 500.4050, L500.4100, L100.0100 #### Laboratory [address] [place], [address] Lymphocytes/100 WBC (Bld) 34.6 % Normal 19-41 Comment on above: Performed By: #### L 500.4050, L500.4100, L100.0100 #### Laboratory [address] [place], [address] MCH (RBC) [Entitic mass] 31.0 pg Normal 27.0-32.0 Comment on above: Performed By: #### L 500.4050, L500.4100, L100.0100 #### Laboratory [address] [place], [address] MCHC (RBC) [Mass/Vol] 31.8 g/dL Low 32-36 [facility] Comment on above: Performed By: #### L 500.4050, L500.4100, L100.0100 #### Laboratory [address] [place], [address] MCV (RBC) [Entitic vol] 97.5 fL Normal 81-99 [facility] Comment on above: Performed By: #### L 500.4050, L500.4100, L100.0100 #### Laboratory [address], [address] Monocytes/100 WBC (Bld) 4.7 % Normal 0-10 [facility] Comment on above: Performed By: #### L 500.4050, L500.4100, L100.0100 #### Laboratory [address] [place], [address] Neutrophils/100 WBC (Bld) 54.2 % Normal 47-70 Comment on above: Performed By: #### L 500.4050, L500.4100, L100.0100 #### Laboratory [address] [place], [address] Nucleated RBC (Bld) [#/Vol] 0 10*3/uL Normal 0-5 Comment on above: Performed By: #### L 500.4050, L500.4100, L100.0100 #### Laboratory [address] [place], [address] Platelet mean volume (Bld) [Entitic vol] 9.4 fL Normal 6.2-12.0 Comment on above: Performed By: #### L 500.4050, L500.4100, L100.0100 #### Laboratory [address] [place], [address] Platelets (Bld) [#/Vol] 379 10*3/uL Normal 150-450 Comment on above: Performed By: #### L 500.4050, L500.4100, L100.0100 #### Laboratory [address] [place], [address] RBC (Bld) [#/Vol] 4.74 10*6/uL Normal 4.2-5.4 [facility] Comment on above: Performed By: #### L 500.4050, L500.4100, L100.0100 #### Laboratory [address] [place], [address] RDW SD 42.8 fl Normal 35.1-43.9 Comment on above: Performed By: #### L 500.4050, L500.4100, L100.0100 #### Laboratory [address] [place], [address] WBC (Bld) [#/Vol] 7.4 10*3/uL Normal 4.4-11.0 [facility] Comment on above: Performed By: #### L 500.4050, L500.4100, L100.0100 #### Laboratory [address] [place], [address] Comprehensive Metabolic Prof ilon 08-17-2023 Albumin [Mass/Vol] 4.1 g/dL Normal 3.2-5.0 [facility] Comment on above: Performed By: #### L 500.4050, L500.4100, L100.0100 #### Laboratory [address] [place], [address] Albumin/Globulin [Mass ratio] 1.1 {ratio} Normal 0.9-2.4 Comment on above: Performed By: #### L 500.4050, L500.4100, L100.0100 #### Laboratory [address] [place], [address] ALK P 42 U/L Low 45-117 Comment on above: Performed By: #### L 500.4050, L500.4100, L100.0100 #### Laboratory [address] [place], [address] ALT [Catalytic activity/Vol] 21 U/L Normal 13-56 Comment on above: Performed By: #### L 500.4050, L500.4100, L100.0100 #### Laboratory [address] [place], [address] AST [Catalytic activity/Vol] 14 U/L Low 15-37 Comment on above: Performed By: #### L 500.4050, L500.4100, L100.0100 #### Laboratory [address] [place], [address] Bilirubin [Mass/Vol] 0.80 mg/dL Normal 0.20-1.00 [facility] Comment on above: Result Comment: For patients on eltrombopag therapy, use of Dimension Lyons TBIL is not recommended. Performed By: #### L 500.4050, L500.4100, L100.0100 #### Laboratory [address] [place], [address] BUN/CRE 13.9 RATIO Normal 10-20 Comment on above: Performed By: #### L 500.4050, L500.4100, L100.0100 #### Laboratory [address] [place], [address] CA,Total 10.0 mg/dL Normal 8.5-10.1 Comment on above: Performed By: #### L 500.4050, L500.4100, L100.0100 #### Laboratory [address] [place], [address] Chloride [Moles/Vol] 105 mmol/L Normal 98-107 [facility] Comment on above: Performed By: #### L 500.4050, L500.4100, L100.0100 #### Laboratory [address] [place], [address] CO2 [Moles/Vol] 28.0 mmol/L Normal 21.0-32.0 Comment on above: Performed By: #### L 500.4050, L500.4100, L100.0100 #### Laboratory [address] [place], [address] Creatinine [Mass/Vol] 1.08 mg/dL High 0.55-1.02 [facility] Comment on above: Result Comment: The validity of the calculated GFR GFRAA in patients over 70 years has not been determined. Clinical correlation is essential. Performed By: #### L 500.4050, L500.4100, L100.0100 #### Laboratory [address], [address] EST GFR - AA 64 mL/min Normal >60 Comment on above: Result Comment: Afri can Montserratian GFR Calc Performed By: #### L 500.4050, L500.4100, L100.0100 #### Laboratory [address] [place], [address] GAP 5 Normal 5-15 Comment on above: Performed By: #### L 500.4050, L500.4100, L100.0100 #### Laboratory [address] [place], [address] GFR/1.73 sq M.predicted among non-blacks MDRD (S/P/Bld) [Vol rate/Area] 53 mL/min/{1.73_m2} Low >60 Comment on above: Result Comment: Non- GFR Calc Performed By: #### L 500.4050, L500.4100, L100.0100 #### Laboratory [address] [place], [address] Globulin (S) [Mass/Vol] 3.7 g/dL Normal 2.2-4.2 [facility] Comment on above: Performed By: #### L 500.4050, L500.4100, L100.0100 #### Laboratory [address] [place], [address] Glucose [Mass/Vol] 98 mg/dL Normal 74-106 [facility] Comment on above: Performed By: #### L 500.4050, L500.4100, L100.0100 #### Laboratory [address] [place], [address] Potassium [Moles/Vol] 4.8 mmol/L Normal 3.5-5.1 [facility] Comment on above: Performed By: #### L 500.4050, L500.4100, L100.0100 #### Laboratory [address] [place], [address] Sodium [Moles/Vol] 138 mmol/L Normal 136-145 [facility] Comment on above: Performed By: #### L 500.4050, L500.4100, L100.0100 #### Laboratory [address] [place], [address] T PROT 7.8 g/dL Normal 6.4-8.2 Comment on above: Performed By: #### L 500.4050, L500.4100, L100.0100 #### Laboratory [address] [place], [address] Urea nitrogen [Mass/Vol] 15 mg/dL Normal 7-18 Comment on above: Performed By: #### L 500.4050, L500.4100, L100.0100 #### Laboratory [address] [place], [address] Determination of erythrocyte mean corpuscular volume (MCV)Ordered By: Rikci Quinn on 08-17-2023 MCV (RBC) [Entitic vol] 97.5 fL 81-99 [facility] Erythrocyte distribution wid th ratioOrdered By: Ricki Quinn on 08-17-2023 Erythrocyte distribution width (RBC) [Ratio] 11.9 % 11.6-14.6 Erythrocyte distribution wid th standard deviationOrdered By: Ricki Quinn on 08-17-2023 Erythrocyte distribution width (RBC) [Entitic vol] 42.8 fL 35.1-43.9 Hematocrit Auto (Bld) [Volum e fraction]Ordered By: Ricki Quinn on 08-17-2023 Hematocrit (Bld) [Volume fraction] 46.2 % 37-47 Immature granulocytes/100 WB C Auto (Bld)Ordered By: Ricki Quinn on 08-17-2023 Immature granulocytes/100 WBC (Bld) 0.300 % 0.0-0.9 Comment on above: IG% - Immature Granu locytes (promyelocytes, myelocytes and metamyelocytes) > 1% indicates that a LEFT SHIFT is Present. Internal Medicine Office Vis iton 08-17-2023 Internal Medicine Office Visit [facility] [address] [place] [address] OFFICE VISIT Date of Service: 08/17/23 MR#: [id number] Acct: [id number] Name: KRISTIN MAIN Rep #: [id number] : 1950 Provider: SAMARA Huddleston Age/Sex: 72/F [place] [facility] Status: Signed Intake Vital Signs 04/11/23 10:33 08/17/23 10:55 Height 5 ft 5 ft Weight: 106 lb 6 oz BMI 20.7 BP 118/60 Blood Pressure Location Lt brachial Position Sitting Respiration 16 Pulse 57 L Pulse Source Monitor Temp 97.0 F L Temp Source Temporal Pulse Oximetry (%) 99 Oxygen Delivery Method room air Intake Visit Reasons: SURGERY CLEARANCE Chief Complaint: surgery clearance 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 Required: No Accompanied by: Self Is patient in pain?: No Allergies No Known Allergies Allergy (Verified 08/17/23 10:53) Medications calcium carbonate 500 mg calcium (1,250 mg) chewable tablet (Calcium 500) 500 mg PO DAILY 04/11/23 [History Confirmed 08/17/23] cholecalciferol (vitamin D3) 10 mcg (400 unit) capsule 10 mcg PO DAILY 04/11/23 [History Confirmed 08/17/23] acetaminophen 500 mg tablet (Tylenol Extra Strength) 500 mg PO Q6H PRN 04/20/23 [History Confirmed 08/17/23] PFSH Medical History Abnormal Pap smear of cervix Bowel incontinence CKD (chronic kidney disease), stage III Female bladder prolapse History of one miscarriage Hyperlipidemia Impacted cerumen of both ears Surgical History S/P tonsillectomy Family History Father Heart disease Diabetes Parkinsons Kidney disease Myocardial infarction Renal failure Mother Liver cancer Social History household members: none housing: apartment current occupational status: unemployed sexually active: Yes Smoking Status: Never smoker alcohol intake: current alcohol intake frequency: holidays/special occasions only details: occasionally substance use type: does not use caffeine: Yes what type of physical activity do you participate in: none, walking and yoga frequency: 3-4 times per week seatbelt use: always do you feel safe at home: Yes additional social history: -Patient is retired Female Reproductive History Menstrual Ab spontaneous: 1 HPI HPI Chief Complaint: surgery clearance Details: KRISTIN MAIN, is a 72 F who presents to the office today for pre-operative evaluation. Patient is scheduled to have a lumbar spine surgery at the [facility] with Dr. Harpreet Vanegas. Patient is not exactly sure of everything that is planned however after looking at her notes from a previous surgical evaluation more than likely she is going to have an L4/L5 fusion with a decompression at the same level due to significant spinal stenosis as well as spondylolisthesis resulting in some radiculopathy and possibly some bladder dysfunction. Surgery will be performed under general anesthesia. Patient is a healthy 72-year-old female with no major chronic conditions. Patient did have a very slight decrease in her EGFR back in 2021 however was not started on medication. Patient has never had any blood pressure issues. She denies having any cardiac or pulmonary past medical history. She states that her father did have heart attack however there is no other known disease states that she is aware of. Patient does not take routine medications other than vitamin D3 and calcium. She does take occasional anti-inflammatories. ROS Const Constitutional: No body ache, chills, excessive sweating, fatigue, fever(s), frequent falls, headache(s), snoring, weakness or change in appetite Eyes Eyes: No blurry vision, change in vision, eye pain or Light sensitivity ENT ENT: No abnormal hearing, ear or mastoid pain, tinnitus, nasal congestion, headache(s), neck pain or sore throat Resp Respiratory: No cough, shortness of breath, snoring or wheezing Cardio Cardiology: No chest pain at rest, chest pain with exertion, excessive sweating, dyspnea on exertion, lightheadedness, orthopnea or palpitations Gastro GI: No abdominal pain, change in bowel habits, constipation, cramping, diarrhea, nausea/dyspepsia or vomiting Genitourinary-Female: No burning urination, painful urination, urinary incontinence or urinary frequency Musc Musculoskeletal: No abnormal gait, joint pain, back pain, limited range of motion, muscle weakness, neck pain or numbness Skin Skin: No dry skin, redness, lesions, itchy eyes, rash or wounds Neuro Neurology: No abnormal gait, abnormal hearing, weakness, frequent falls, headache(s), memory loss or numbness Psych Psychiatric: No anxiety, No change in appetite, No depression, No memory loss a (more content not included)... Normal Ketones Test strip Ql (U)Ord ered By: Ricki Quinn on 08-17-2023 Ketones Ql (U) Negative Negative Laboratory - Chemistry and C hemistry - challengeOrdered By: Ricki Quinn on 08-17-2023 Albumin/Globulin [Mass ratio] 1.1 {ratio} 0.9-2.4 ALP [Catalytic activity/Vol] 42 U/L 45-117 ALT [Catalytic activity/Vol] 21 U/L 13-56 Cholesterol in HDL (Body fld) [Mass/Vol] 66 mg/dL >40 Comment on above: The drugs N-Acetylcy steine and Metamizole may falsely depress this assay. Reference Range HDL <40 mg/dL Low HDL Cholesterol HDL >or= 60 mg/dL High HDL Cholesterol Cholesterol in LDL (Body fld) [Moles/Vol] 215 mg/dL 0-130 Cholesterol in VLDL Calc [Moles/Vol] 28 mg/dL 5-40 CO2 [Moles/Vol] 28.0 mmol/L 21.0-32.0 Globulin (S) [Mass/Vol] 3.7 g/dL 2.2-4.2 [facility] Urea nitrogen/Creatinine [Mass ratio] 13.9 mg/mg 10-20 Laboratory - Hematology and Cell countsOrdered By: Ricki Quinn on 08-17-2023 MCH (RBC) [Entitic mass] 31.0 pg 27.0-32.0 MCHC (RBC) [Mass/Vol] 31.8 g/dL 32-36 [facility] Nucleated RBC/100 WBC (Bld) [Ratio] 0 % 0-5 Platelets (Bld) [#/Vol] 379 10*3/uL 150-450 Lipid Profileon 08-17-2023 Cholesterol [Mass/Vol] 309 mg/dL High 200 [facility] Comment on above: Result Comment: <200 mg/dL Desirable 200-240 mg/dL Borderline >240 mg/dL High Risk Performed By: #### L 500.4050, L500.4100, L100.0100 #### Laboratory [address] [place], [address] Cholesterol in HDL [Mass/Vol] 66 mg/dL Normal Comment on above: Result Comment: The drugs N-Acetylcysteine and Metamizole may falsely depress this assay. Reference Range HDL <40 mg/dL Low HDL Cholesterol HDL >or= 60 mg/dL High HDL Cholesterol Performed By: #### L 500.4050, L500.4100, L100.0100 #### Laboratory [address] [place], [address] Cholesterol in LDL [Mass/Vol] 215 mg/dL High 0-130 Comment on above: Performed By: #### L 500.4050, L500.4100, L100.0100 #### Laboratory [address] [place], [address] Cholesterol in VLDL [Mass/Vol] 28 mg/dL Normal 5-40 Comment on above: Performed By: #### L 500.4050, L500.4100, L100.0100 #### Laboratory [address] [place], [address] Triglyceride [Mass/Vol] 142 mg/dL Normal [facility] Comment on above: Result Comment: The drugs N-Acetylcysteine and Metamizole may falsely depress this assay. Serum Triglycerides Reference Interval Normal <150 mg/dL Borderline high 150 - 199 mg/dL High 200 - 499 mg/dL Very High > or = 500 mg/dL Performed By: #### L 500.4050, L500.4100, L100.0100 #### Laboratory [address] [place], [address] Mucus LM Ql (Urine sed)Order ed By: Ricki Quinn on 08-17-2023 Mucus Ql (Urine sed) 0 SEEN /hpf [facility] Nitrite Test strip Ql (U)Ord ered By: Ricki Quinn on 08-17-2023 Nitrite Ql (U) Negative Negative No Panel InformationOrdered By: Ricki Quinn on 08-17-2023 Urine RBC 0-5 SEEN /hpf 0-5 Estimated GFR (MDRD) Amer 64 mL/min >60 Comment on above: GFR Calc Estimated GFR (MDRD) Non-Af Amer 53 mL/min >60 Comment on above: Non- GFR Calc Platelet mean volume Pradeep-Ec ker (Bld) [Entitic vol]Ordered By: Ricki Quinn on 08-17-2023 Platelet mean volume (Bld) [Entitic vol] 9.4 fL 6.2-12.0 Protein Test strip Ql (U)Ord ered By: Ricki Quinn on 08-17-2023 Protein Ql (U) 15 mg/dl Negative RBC Auto (Bld) [#/Vol]Ordere d By: Ricki Quinn on 08-17-2023 RBC (Bld) [#/Vol] 4.74 10*6/uL 4.2-5.4 [facility] Serum or plasma calcium selam urement (mass/volume)Ordered By: Ricki Quinn on 08-17-2023 Calcium [Mass/Vol] 10.0 mg/dL 8.5-10.1 [facility] Serum or plasma creatinine m easurement (mass/volume)Ordered By: Ricki Quinn on 08-17-2023 Creatinine [Mass/Vol] 1.08 mg/dL 0.55-1.02 [facility] Comment on above: The validity of the calculated GFR & GFRAA in patients over 70 years has not been determined. Clinical correlation is essential. Serum or plasma urea nitroge n measurement (mass/volume)Ordered By: Ricki Quinn on 08-17-2023 Urea nitrogen [Mass/Vol] 15 mg/dL 7-18 Squamous epithelial cells de tection in urine sediment by light microscopyOrdered By: Ricki Quinn on 08-17-2023 Epithelial cells.squamous LM Ql (Urine sed) 5-10 SEEN /hpf 5-10 Thin prep Papanicolaou smear with manual screeningOrdered By: Ricki Quinn on 08-17-2023 Thin prep Papanicolaou smear with manual screening 4.1 g/dL 3.2-5.0 Thin prep Papanicolaou smear with manual screening 14 U/L 15-37 Thin prep Papanicolaou smear with manual screening 5 5-15 Urinalysis, Completeon 08-17 EPI,SQUAMOUS 5-10 SEEN Normal 5-10 Comment on above: Order Comment: MAUREEN CTOR TO SPECIFY Performed By: #### L 400.0001 #### Laboratory [address] [facility] [address] RBC 0-5 SEEN Normal 0-5 Comment on above: Order Comment: MAUREEN CTOR TO SPECIFY Performed By: #### L 400.0001 #### Laboratory [address] [facility] [address] WBC 0-5 SEEN Normal 0-5 Comment on above: Order Comment: MAUREEN CTOR TO SPECIFY Performed By: #### L 400.0001 #### Laboratory [address] [facility] [address] BACTERIA 0 SEEN Normal None Seen Comment on above: Order Comment: MAUREEN CTOR TO SPECIFY Performed By: #### L 400.0001 #### Laboratory [address] [facility] [address] Mucus Ql (Urine sed) 0 SEEN Normal [facility] Comment on above: Order Comment: MAUREEN CTOR TO SPECIFY Performed By: #### L 400.0001 #### Laboratory [address] [facility] [address] Urine blood detectionOrdered By: Ricki Quinn on 08-17-2023 RBC Ql (U) 25 /ul Negative Urine clarityOrdered By: Aubrey Quinn on 08-17-2023 Clarity (U) Clear Clear Urine color determinationOrd ered By: Ricki Quinn on 08-17-2023 Color (U) Yellow Yellow Urine glucose detectionOrder ed By: Ricki Quinn on 08-17-2023 Glucose Ql (U) Normal mg/dl Normal Urine leukocyte esterase det ection by dipstickOrdered By: Ricki Quinn on 08-17-2023 Leukocyte esterase Test strip Ql (U) 500 /ul Negative Urine pHOrdered By: Ricki Quinn on 08-17-2023 pH (U) 6.0 [pH] 5.0 - 8.0 Urine sediment bacteria coun t by microscopy (number/high power field)Ordered By: Ricki Quinn on 08-17-2023 Bacteria LM.HPF (Urine sed) [#/Area] 0 /[HPF] None Seen Urine specific gravity measu rementOrdered By: Ricki Quinn on 08-17-2023 Specific gravity (U) [Rel density] 1.015 1.002-1.030 Urine urobilinogen measureme ntOrdered By: Ricki Quinn on 08-17-2023 Urobilinogen Ql (U) Normal mg/dl Normal [facility] Culture, urineOrdered By: Hali Arciniega on 11-04-2022 Bacteria identified Cx Nom (U) Escherichia coli Basophil percentageOrdered B y: Dick Arciniega on 11-02-2022 Basophil percentage 50-100 SEEN /hpf 0-5 Bilirubin Test strip Ql (U)O rdered By: Dick Arciniega on 11-02-2022 Bilirubin Ql (U) Negative Negative Ketones Test strip Ql (U)Ord ered By: Dick Arciniega on 11-02-2022 Ketones Ql (U) Negative Negative Laboratory - Chemistry and C hemistry - challengeon 11-02-2022 Bilirubin Ql (U) Negative Glucose Ql (U) Negative Ketones Ql (U) Negative pH (U) 5 [pH] Specific gravity (U) [Rel density] 1.010 Urobilinogen (U) [Mass/Vol] Negative Laboratory - Hematology and Cell countson 11-02-2022 Hemoglobin Ql (U) Hemolyzed Laboratory - Specimen inform ationon 11-02-2022 Clarity (U) Cloudy Color (U) STRAW Laboratory - Urinalysison Nitrite Ql (U) Negative Protein Ql (U) Negative Mucus LM Ql (Urine sed)Order ed By: Dick Arciniega on 11-02-2022 Mucus Ql (Urine sed) 0 SEEN /hpf [facility] Nitrite Test strip Ql (U)Ord ered By: Dick Arciniega on 11-02-2022 Nitrite Ql (U) Negative Negative No Panel Informationon 11-02 Urine Leukocytes Positive Urine Non-Hemolyzed Blood Moderate Protein Test strip Ql (U)Ord ered By: Dick Arciniega on 11-02-2022 Protein Ql (U) 15 mg/dl Negative Squamous epithelial cells de tection in urine sediment by light microscopyOrdered By: Dick Arciniega on 11-02-2022 Epithelial cells.squamous LM Ql (Urine sed) 0-5 SEEN /hpf 5-10 Urine blood detectionOrdered By: Dick Arciniega on 11-02-2022 RBC Ql (U) 50 /ul Negative RBC Ql (U) 0-5 SEEN /hpf 0-5 Urine clarityOrdered By: Ra Arciniega on 11-02-2022 Clarity (U) Clear Clear Urine color determinationOrd ered By: Dick Arciniega on 11-02-2022 Color (U) Yellow Yellow Urine glucose detectionOrder ed By: Dick Arciniega on 11-02-2022 Glucose Ql (U) Normal mg/dl Normal Urine leukocyte esterase det ection by dipstickOrdered By: Dick Arciniega on 04-18-2023 Leukocyte esterase Test strip Ql (U) 500 /ul Negative Urine pHOrdered By: Dick rojas on 11-02-2022 pH (U) 6.5 [pH] 5.0 - 8.0 Urine sediment bacteria coun t by microscopy (number/high power field)Ordered By: Dick Arciniega on 11-02-2022 Bacteria LM.HPF (Urine sed) [#/Area] 0 /[HPF] None Seen Urine specific gravity measu rementOrdered By: Dick Arciniega on 11-02-2022 Specific gravity (U) [Rel density] 1.005 1.002-1.030 Urobilinogen Auto test strip Ql (U)Ordered By: Dick Arciniega on 11-02-2022 Urobilinogen Ql (U) Normal mg/dl Normal [facility] Absolute lymphocyte counton 02-22-2022 Lymphocytes Auto (Unsp spec) [#/Vol] 2.30 10*3/uL 0.83-4.51 Work Phone: Basophil percentageon 2021 Basophils/100 WBC (Bld) 0.7 % 0-1 [facility] Work Phone: Bilirubin [Mass/Vol] 0.70 mg/dL 0.20-1.00 [facility] Work Phone: Comment on above: For patients on eltr ombopag therapy, use of Dimension Lyons TBIL is not recommended. Chloride [Moles/Vol] 108 mmol/L 98-107 [facility] Work Phone: Cholesterol [Mass/Vol] 247 mg/dL <200 [facility] Work Phone: Comment on above: <200 mg/dL Desirable 200-240 mg/dL Borderline >240 mg/dL High Risk Eosinophils/100 WBC (Bld) 4.1 % 0-5 Work Phone: Glucose [Mass/Vol] 101 mg/dL 74-106 [facility] Work Phone: Comment on above: Fasting Glucose resu lt from 100 to 125 mg/dL suggests IMPAIRED HOMEOSTASIS per A.D.A. criteria. Neutrophils (Bld) [#/Vol] 3.9 10*3/uL 2.0-7.7 Work Phone: Neutrophils/100 WBC (Bld) 56.8 % 47-70 Work Phone: Potassium [Moles/Vol] 4.7 mmol/L 3.5-5.1 [facility] Work Phone: [phone] Protein [Mass/Vol] 7.3 g/dL 6.4-8.2 [facility] Work Phone: Sodium [Moles/Vol] 141 mmol/L 136-145 [facility] Work Phone: [phone] Triglyceride [Mass/Vol] 142 mg/dL <199 [facility] Work Phone: Comment on above: The drugs N-Acetylcy steine and Metamizole may falsely depress this assay.Serum Triglycerides Reference Interval Normal <150 mg/dL Borderline high 150 - 199 mg/dL High 200 - 499 mg/dL Very High > or = 500 mg/dL WBC (Bld) [#/Vol] 6.9 10*3/uL 4.4-11.0 [facility] Work Phone: Blood erythrocytes count (nu mber/volume)on 02-22-2022 RBC (Bld) [#/Vol] 4.50 10*6/uL 4.2-5.4 [facility] Work Phone: Blood hemoglobin measurement (mass/volume)on 02-22-2022 Hemoglobin (Bld) [Mass/Vol] 14.2 g/dL 12.0-15.0 Work Phone: Blood lymphocytes/100 leukoc yteson 02-22-2022 Lymphocytes/100 WBC (Bld) 33.3 % 19-41 Work Phone: Blood monocytes/100 leukocyt eson 02-22-2022 Monocytes/100 WBC (Bld) 4.8 % 0-10 [facility] Work Phone: [phone] Blood platelet mean volumeon 02-22-2022 Platelet mean volume (Bld) [Entitic vol] 9.0 fL 6.2-12.0 Work Phone: [phone] Determination of erythrocyte mean corpuscular volume (MCV)on 02-22-2022 MCV (RBC) [Entitic vol] 95.8 fL 81-99 [facility] Work Phone: [phone] Hematocrit Auto (Bld) [Volum e fraction]on 02-22-2022 Hematocrit (Bld) [Volume fraction] 43.1 % 37-47 Work Phone: [phone] Laboratory - Chemistry and C hemistry - challengeon 02-22-2022 ALP [Catalytic activity/Vol] 43 U/L 45-117 Work Phone: [phone] ALT [Catalytic activity/Vol] 17 U/L 13-56 Work Phone: [phone] CO2 [Moles/Vol] 29.0 mmol/L 21.0-32.0 Work Phone: [phone] Globulin (S) [Mass/Vol] 3.6 g/dL 2.2-4.2 [facility] Work Phone: [phone] Urea nitrogen/Creatinine [Mass ratio] 12.1 mg/mg 10-20 Work Phone: [phone] Laboratory - Hematology and Cell countson 02-22-2022 Erythrocyte distribution width (RBC) [Entitic vol] 42.4 fL 35.1-43.9 Work Phone: [phone] Erythrocyte distribution width (RBC) [Ratio] 12.0 % 11.6-14.6 Work Phone: [phone] Immature granulocytes/100 WBC (Bld) 0.300 % 0.0-0.9 Work Phone: [phone] Comment on above: IG% - Immature Granu locytes (promyelocytes, myelocytes and metamyelocytes) > 1% indicates that a LEFT SHIFT is Present. MCH (RBC) [Entitic mass] 31.6 pg 27.0-32.0 Work Phone: Nucleated RBC/100 WBC (Bld) [Ratio] 0 % 0-5 Work Phone: MCHC Auto (RBC) [Mass/Vol]on 02-22-2022 MCHC (RBC) [Mass/Vol] 32.9 g/dL 32-36 [facility] Work Phone: No Panel Informationon 02-22 Estimated GFR (MDRD) Amer 71 mL/min >60 Work Phone: Comment on above: GFR Calc Estimated GFR (MDRD) Non-Af Amer 59 mL/min >60 Work Phone: Comment on above: Non- GFR Calc Platelets bldon 02-22-2022 Platelets (Bld) [#/Vol] 330 10*3/uL 150-450 Work Phone: [phone] Serum or plasma albumin selam urement (mass/volume)on 02-22-2022 Albumin [Mass/Vol] 3.7 g/dL 3.2-5.0 [facility] Work Phone: Serum or plasma albumin/glob ulin mass ratioon 02-22-2022 Albumin/Globulin [Mass ratio] 1.0 {ratio} 0.9-2.4 Work Phone: [phone] Serum or plasma calcium selam urement (mass/volume)on 02-22-2022 Calcium [Mass/Vol] 9.5 mg/dL 8.5-10.1 [facility] Work Phone: [phone] Serum or plasma cholesterol in HDL measurement (mass/volume)on 02-22-2022 Cholesterol in HDL [Mass/Vol] 61 mg/dL >40 Work Phone: Comment on above: The drugs N-Acetylcy steine and Metamizole may falsely depress this assay. Reference Range HDL <40 mg/dL Low HDL Cholesterol HDL >or= 60 mg/dL High HDL Cholesterol Serum or plasma cholesterol in VLDL measurement (mass/volume)on 02-22-2022 Cholesterol in VLDL [Mass/Vol] 28 mg/dL 5-40 Work Phone: Serum or plasma creatinine m easurement (mass/volume)on 02-22-2022 Creatinine [Mass/Vol] 0.99 mg/dL 0.55-1.02 [facility] Work Phone: Comment on above: The validity of the calculated GFR & GFRAA in patients over 70 years has not been determined. Clinical correlation is essential. Serum or plasma low density lipoprotein (LDL) cholesterol measurement (mass/volume)on 02-22-2022 Cholesterol in LDL [Mass/Vol] 158 mg/dL 0-130 Work Phone: Serum or plasma urea nitroge n measurement (mass/volume)on 02-22-2022 Urea nitrogen [Mass/Vol] 12 mg/dL 7-18 Work Phone: Thin prep Papanicolaou smear with manual screeningon 02-22-2022 Thin prep Papanicolaou smear with manual screening 15 U/L 15-37 Work Phone: Thin prep Papanicolaou smear with manual screening 4 5-15 Work Phone: Vital Signs Date Time Vital Sign Value Performing Clinician Faci lity 02-02-2025 11:51-0400 Body temperature 98.6 [degF] Dr. Fritz Eugene MD Work Phone: 02-02-2025 11:51-0400 Diastolic blood pressure 72 mm[Hg] Dr. Fritz Eugene MD Work Phone: 02-02-2025 11:51-0400 Heart rate 71 /min Dr. Fritz Eugene MD Work Phone: 02-02-2025 11:51-0400 Respiratory rate 16 /min Dr. Fritz Eugene MD Work Phone: 02-02-2025 11:51-0400 SaO2% (BldA) [Mass fraction] 98 % Dr. Fritz Eugene MD Work Phone: 02-02-2025 11:51-0400 Systolic blood pressure 120 mm[Hg] Dr. Fritz Eugene MD Work Phone: 08-17-2023 10:55-0500 Body height 152.[address] Fritz Eugene Work Phone: 08-17-2023 10:55-0500 Body mass index (BMI) [Ratio] 20.7 kg/m2 Dr. Fritz Eugene Work Phone: 08-17-2023 10:55-0500 Body temperature 97 [degF] Dr. Fritz Eugene Work Phone: 08-17-2023 10:55-0500 Body weight 48.[address] Fritz Eugene Work Phone: 08-17-2023 10:55-0500 Diastolic blood pressure 60 mm[Hg] Dr. Fritz Eugene Work Phone: 08-17-2023 10:55-0500 Heart rate 57 /min Dr. Fritz Eugene Work Phone: 08-17-2023 10:55-0500 Respiratory rate 16 /min Dr. Fritz Eugene Work Phone: 08-17-2023 10:55-0500 SaO2% (BldA) [Mass fraction] 99 % Dr. Fritz Eugene Work Phone: 08-17-2023 10:55-0500 Systolic blood pressure 118 mm[Hg] Dr. Fritz Eugene Work Phone: 11-02-2022 10:51-0400 Body height 152.[address] Fritz Eugene Work Phone: 11-02-2022 10:51-0400 Body mass index (BMI) [Ratio] 21.1 kg/m2 Dr. Fritz Eugene Work Phone: 11-02-2022 10:51-0400 Body temperature 98 [degF] Dr. Fritz Eugene Work Phone: 11-02-2022 10:51-0400 Body weight 48.[address] Fritz Eugene Work Phone: 11-02-2022 10:51-0400 Diastolic blood pressure 78 mm[Hg] Dr. Fritz Eugene Work Phone: 11-02-2022 10:51-0400 Heart rate 86 /min Dr. Fritz Eugene Work Phone: 11-02-2022 10:51-0400 Respiratory rate 16 /min Dr. Fritz Eugene Work Phone: 11-02-2022 10:51-0400 SaO2% (BldA) [Mass fraction] 98 % Dr. Fritz Eugene Work Phone: 11-02-2022 10:51-0400 Systolic blood pressure 122 mm[Hg] Dr. Fritz Eugene Work Phone: 02-22-2022 11:00-0400 Body height 153.67 cm No Primary Care Physician Work Phone: 02-22-2022 11:00-0400 Body mass index (BMI) [Ratio] 20.5 kg/m2 No Primary Care Physician Work Phone: 02-22-2022 11:00-0400 Body temperature 97 [degF] No Primary Care Physician Work Phone: 02-22-2022 11:00-0400 Body weight 48.53 kg No Primary Care Physician Work Phone: 02-22-2022 11:00-0400 Diastolic blood pressure 80 mm[Hg] No Primary Care Physician Work Phone: 02-22-2022 11:00-0400 Heart rate 63 /min No Primary Care Physician Work Phone: 02-22-2022 11:00-0400 Respiratory rate 16 /min No Primary Care Physician Work Phone: 02-22-2022 11:00-0400 SaO2% (BldA) [Mass fraction] 98 % No Primary Care Physician Work Phone: 02-22-2022 11:00-0400 Systolic blood pressure 110 mm[Hg] No Primary Care Physician Work Phone: Encounters Encounter Date Encounter Type Care Provider Facility Start: 02-02-2025 End: 02-02-[address] Fritz Eugene MD Work Phone: [facility] Start: 02-02-2025 End: 02-02-2025 Patient encounter procedure Fabiola Whitfield [facility] Work Phone: Start: 07-30-2024 End: 07-30-2024 ambulatory [facility] [place] Start: 04-13-2024 End: 04-13-2024 [facility] Start: 04-06-2024 End: 04-06-2024 ambulatory [facility] Facility: Start: 03-30-2024 End: 03-30-2024 ambulatory [facility] Facility:[facility] Start: 03-15-2024 End: 03-15-2024 ambulatory Ricki PASCUAL Facility:[facility] Start: 03-12-[address] Estefanía Eugene MD Work Phone: Start: 03-12-2024 End: 03-12-2024 [facility] Start: 03-12-2024 End: 03-12-2024 ambulatory [facility] Facility: Start: 12-30-2023 End: 12-30-2023 ambulatory [facility] Facility: Start: 09-16-2023 Telephone encounter Raulito gutierrez MD Work Phone: [facility] Comment on above: Surgery Scheduling ( 10/28/23) Start: 08-22-2023 Encounter for other preprocedural examination Ricki PASCUAL Start: 08-17-2023 End: 08-17-[address] Fritz Eugene Work Phone: Work Phone: Start: 08-17-2023 End: 08-17-[address] Fritz Eugene Work Phone: -Laboratory, [place] Start: 08-17-[address] Estefanía Eugene Work Phone: Start: 08-17-2023 End: 08-17-2023 Encounter for other preprocedural examination Dr. Fritz Eugene Work Phone: Start: 08-17-2023 End: 08-17-[address] Fritz Eugene Work Phone: [facility] Work Phone: Start: 08-17-2023 End: 08-17-2023 ambulatory Ricki PASCUAL [place] Start: 08-17-2023 End: 08-17-2023 ambulatory Ricki PASCUAL Facility: Start: 07-20-2023 End: 07-20-[address] Fritz Eugene Work Phone: [facility] Work Phone: Start: 11-03-2022 End: 11-03-[address] Fritz Eugene Work Phone: -[facility] Start: 11-02-2022 End: 11-02-[address] Fritz Eugene Work Phone: Work Phone: Start: 11-02-2022 End: 11-02-[address] Fritz Eugene Work Phone: -Laboratory, [facility] Start: 11-02-2022 End: 11-02-[address] Fritz Eugene Work Phone: [facility] Start: 02-22-2022 End: 02-22-2022 Patient encounter procedure No Primary Care Physician [facility] Procedures Date Procedure Procedure Detail Performing Clinician Start: 11-03-2022 Screening mammography Amrit Eugene Work Phone: Urine culture Dr. Fritz Eugene Work Phone: Plan of Treatment Date Care Activity Detail Author Start: 07-18-2023 Medicare Advantage Annual Wellness Visit Medicare Advantage Annual Wellness Visit [facility] Start: 03-18-2023 COVID-19 Vaccine ( season) COVID-19 Vaccine ( season) [facility] Start: 03-18-2023 Influenza vaccination Influenza Vaccine (#1) [facility] Start: 02-22-2022 Patient referral Work Phone: Start: 2017 Pneumococcal Vaccine: 65+ Years (1 of 1 - PCV) Pneumococcal Vaccine: 65+ Years (1 of 1 - PCV) [facility] Start: 2012 RSV Immunization aged 60 or older (1 - 1-dose 60+ series) RSV Immunization aged 60 or older (1 - 1-dose 60+ series) [facility] Start: 06-16-2003 Zoster Vaccines (1 of 2) Zoster Vaccines (1 of 2) [facility] Start: 1992 Screening for malignant neoplasm of breast Mammogram [facility] Start: 01-01-1972 DTaP/Tdap/Td Vaccines (1 - Tdap) DTaP/Tdap/Td Vaccines (1 - Tdap) [facility] Start: 1970 Hepatitis C screening Hepatitis C Screening [facility] Start: 1964 Depression Screening Depression Screening [facility] Start: 1952 Screening for malignant neoplasm of colon [facility] Start: 1952 Screening for osteoporosis Bone Density Scan [facility] Patient referral [facility] Work Phone: [facility] Immunizations Immunization Date Immunization Notes Care Provider Fa cility 10-16-2020 Covid (Pfizer) No Primary Ca re Physician 09-25-2020 Covid (Pfizer) No Primary Ca re Physician Payers Date Payer Category Payer Self-pay [id number] 2023 Private Health Insurance 101 [id number] 2023 Medicare AETNA MEDICARE A DVANTAGE AETNA MEDICARE [id number] 2023-Present [address] [place] [address] Medicare HMO [id number] Medicare [id number] Unknown [id number] Unknown [id number] 462 Unknown [id number]. 462 Unknown [id number]. 462 Unknown [id number]. 462 Unknown [id number]. 462 Unknown [id number]. 462 Unknown [id number] [id number]. 462 Unknown [id number]. 462 Unknown [id number] [id number]. 462 Unknown [id number]. 462 Unknown [id number] [id number]. 462 Unknown [id number]. 462 Social History Date Type Detail Facility Start: 02-22-2022 End: 08-17-2023 Tobacco smoking status CTIS Unknown if ever smoked Start: 1950 Sex Assigned At Female [facility] Start: 1950 Sex Assigned At Not on file [facility] Gender identity Not on file [facility] Start: 04-11-2024 Tobacco smoking stat us NHIS Never smoked tobacco (finding) Clinical Note 04-13-2024 Note Date & Type Note Facility 04-13-2024 Note [facility] Medical Records Department [address] [place] [address] History Physical Exam 04/13/24 0805 MR#: [id number] Acct: [id number] Name: KRISTIN MAIN Rep #: [id number] : 1950 73 From: Tim Dela Cruz MD PCP: Dr. Fritz Eugene MD Status:[facility] Location: [place] [address] HPI - General General Date of Admission: 04/13/24 Date of Service: 04/13/24 Chief Complaint: Colon cancer screening HPI Narrative KRISTIN MAIN, is a 73 F who presents screening colonoscopy. Her last colonoscopy was about 10 years ago. No polyps were noted at that time. No family history of colon polyps or colon cancers. No symptoms. [facility] Medical History Wears glasses Post-menopausal Back pain Non-smoker Osteoporosis Health care maintenance Osteopenia with high risk of fracture Vertigo Colon cancer screening Impacted cerumen of both ears History of one miscarriage CKD (chronic kidney disease), stage III Bowel incontinence Female bladder prolapse Hyperlipidemia Abnormal Pap smear of cervix Home Medications ???Medication ???Instructions ???Recorded ???Last Taken ???Type calcium carbonate (Calcium 500) 500 mg PO BID 04/11/23 Unknown History cholecalciferol (vitamin D3) 10 10 mcg PO DAILY 04/11/23 Unknown History mcg (400 unit) capsule rosuvastatin 10 mg tablet 10 mg PO DAILY #90 tabs 02/02/24 Unknown Rx gabapentin 300 mg capsule 300 mg PO PRN PAIN 03/12/24 Unknown History Allergy/AdvReac Type Severity Reaction Status Date / Time No Known Allergies Allergy Verified 04/13/24 07:27 Family History Father Heart disease Diabetes Parkinsons Kidney disease Myocardial infarction Renal failure Mother Liver cancer Surgical History Hx of dilation and curettage History of back surgery Hx of colonoscopy S/P tonsillectomy Social History household members: none housing: apartment current occupational status: retired sexually active: Yes Smoking Status: Never smoker alcohol intake: current alcohol intake frequency: holidays/special occasions only details: occasionally substance use type: does not use caffeine: Yes what type of physical activity do you participate in: none, walking and yoga frequency: 3-4 times per week seatbelt use: always do you feel safe at home: Yes additional social history: -Patient is retired Vital Signs Vital Signs Vital Signs: 04/13/24 07:32 04/13/24 07:32 Temperature 98.5 F Temperature Source Temporal Pulse Rate 69 Respiratory Rate 16 Respiratory Pattern Normal Blood Pressure 100/65 Blood Pressure Mean 76 Blood Pressure Source Monitor Blood Pressure Position Semi-Fowlers Blood Pressure Location Right Arm Pulse Ox 99 Oxygen Delivery Method Room Air Weight Weight: 106 lb 0.677 oz Body Mass Index (BMI) 20.7 Physical Exam Narrative She is alert and oriented x 3. No acute distress. Head is normocephalic and atraumatic. Pupils are equal round and reactive to light. Abdomen is soft nontender nondistended Assessment Plan Assessment/Plan (1) Colon cancer screening: PLAN: Plan The patient is a 73-year-old female who presents today for elective colonoscopy. No previous history of polyps. She only had 1 prior colonoscopy and that was 10 years ago. We discussed the details of the planned procedure including risks benefits and alternatives. She wishes to proceed. Procedure will begin momentarily. Charges/Coding Visit Charges Inpatient E M: 59261 Init Hosp L1 04/13/24 0816 Cosigner Signature (if applicable): CC: Dr. Fritz Eugene MD; Dr. Tim Dela Cruz MD Signed Telephone encounter Note 09-16-2023 Telephone Encounter - Emma Rawls MA - 09/16/2023 3:49 PM EST Note Date & Type Note Facility 09-16-2023 Telephone encounter Note Form atting of this note might be different from the original. SURGERY: [facility] FOR DR. REN VANEGAS OPEN & CLOSE ALIF L4-5, L5-S1 DATE OF SURGERY: 10/28/23 AT 7:[address] ZAVALA AUTH #: AET[employer] MEDICARE, CHARDA WITH DR. VANEGAS'S OFFICE IS OBTAINING PRIOR AUTH FOR DR. ZAVALA AND DR. VANEGAS. 10/06/23-Jae Munoz with Dr. Vanegas's office approved Auth#[id number] [facility] Note 09-16-2023 Telephone Encounter - Emma Rawls MA - 09/16/2023 3:49 PM EST Note Date & Type Note Facility 09-16-2023 Miscellaneous Notes Formattin g of this note might be different from the original. SURGERY: [facility] FOR DR. REN VANEGAS OPEN & CLOSE ALIF L4-5, L5-S1 DATE OF SURGERY: 10/28/23 AT 7:[address] ZAVALA AUTH #: A[employer] MEDICARE, CHARDA WITH DR. VANEGAS'S OFFICE IS OBTAINING PRIOR AUTH FOR DR. ZAVALA AND DR. VANEGAS. 10/06/23-Per Tammy with Dr. 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 Work Phone: Evaluation note Note Date & Type Note Facility Evaluation note Diagnosis Onset Date Cystitis acute Work Phone: Evaluation note Note Date & Type Note Facility Evaluation note Diagnosis Onset Date Degenerative spondylolisthesis acute Spinal stenosis of lumbar re gion with radiculopathy acute Pre-operative examination [place] Work Phone: Evaluation note Note Date & Type Note Facility Evaluation note No assessment information availa [facility] Work Phone: Hospital Discharge instructions Note Date & Type Note Facility Hospital Discharge instructions Work Phone: Reason for referral (narrative) Note Date & Type Note Facility Reason for referral (narrative) No reason for referral information available [facility] Work Phone: Chief Complaint and Reason for Visit Chief Complaint 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, [facility] P T, CONSENT FORM ONLY Reason for Visit Bowel incontinence CKD (chronic kidney disease), stage III Cystocele Female bladder prolapse Hyperlipidemia Chief Complaint CONCERN FOR UTI SCREENING Reason for Visit Cystitis Chief Complaint LUMBAR SPINE SURGERY CLEARANCE Reason for Visit Degenerative spondyl olisthesis Spinal stenosis of lumbar region with radiculopathy Pre-operative examination Chief Complaint Admit Date CONCERN FOR UTI February 02, 2025 10:5 4am Family History Relationship Condition Age at Onset Recorded Date/T gemini father Cardiac disease Unknown Diabetes mellitus Unknown Parkinson's disease Unknown Kidney disorder Unknown Myocardial infarction Unknown Renal failure Unknown mother Malignant neoplasm of liver Unknown Summary Purpose Advance Directives No Advanced Directives Records FoundNo Advanced Directives Records Found Additional Source Comments Goals (unrecognized section and content) Goals may be documented in a n alternate sectionGoals may be documented in an alternate sectionGoals may be documented in an alternate sectionGoals may be documented in an alternate section Care Teams (unrecognized sec tion and content) Team Status: Active Member Role Status Dates No Primary Care Physician Family Provider Active Dr. Fritz Eugene MD Primary Care Provider Active Team Status: Inactive Member Role Status Dates Dr. Fritz Eugene MD Primary Care Provider, Refer ring Provider Active Dick PASCUAL PA Attending Provider Active Team Status: Inactive Member Role Status Dates Dr. Fritz Eugene MD Primary Care Provider Active Dr. Loraine Eagle DO Attending Provider, Refe rring Provider Active Team Status: Inactive Member Role Status Dates Dr. Fritz Eugene MD Primary Care Provider Active Dick PASCUAL PA Attending Provider, Referring Provi bryant Active Team Status: Inactive Member Role Status Dates Dr. Fritz Eugene MD Primary Care Provider, Refer ring Provider Active Dr. Tulio Ames DO Attending Provider Active Team Status: Inactive Member Role Status Dates Dr. Firtz Eugene MD Primary Care Provider, Refer ring Provider Active SAMARA Quick Attending Provider Active Team Status: Inactive Member Role Status Dates Dr. Fritz Eugene MD Primary Care Provider Active SAMARA Quick Attending Provider, Referring Prov ider Active Team Status: Active Member Role/Relationship Status Dates No Primary Care Physician Family Provider Active Dr. Fritz Eugene MD Primary Care Provider Active Team Status: Inactive Member Role/Relationship Status Dates Dr. Fritz Eugene MD Primary Care Provider Active Start: February 02, 2025 End: February 02, 2025 Dr. Fritz Eugene MD Referring Provider Active Start: February 02, 2025 End: February 02, 2025 SCOT Ontiveros Attending Provider Active Start: February 02, 2025 End: February 02, 2025 Reason for Visit (unrecogniz ed section and content) Reason Comments Surgery Scheduling 10/28/23 INFORMATION SOURCE (unrecogn ized section and content) DATE CREATED AUTHOR [facility]/07/2023 [facility] DATE CREATED AUTHOR AUTHOR'S ORGANIZ ATION 08/01/2024 [facility] FOR RECORDS PERTAINING TO PATIENTS WHO ARE OR HAVE BEEN ENROLLED IN A CHEMICAL DEPENDENCY/SUBSTANCEABUSE PROGRAM, SOME INFORMATION MAY BE OMITTED. This clinical summary was aggregated from multiple sources. Caution should be exercised in using it in the provision of clinical care. This summary normalizes information from multiple sources, and as a consequence, information in this document may materially change the coding, format and clinical context of patient data. In addition, data may be omitted in some cases. CLINICAL DECISIONS SHOULD BE BASED ON THE PRIMARY CLINICAL RECORDS. [facility]. provides no warranty or guarantee of the accuracy or completeness of information in this document.
== END | disposition home or self-care (01) ==
LOC: LABSPEC 02-04 07:29
PROVIDERS: PCP Internal Medicine; Visit Provider Nurse Practitioner Family
DX: R82.90 Unspecified abnormal findings in urine (principal)
CPT/HCPCS: 87077; 87086; 87088; 87186

== ENCOUNTER → 2025-02-13 | Outpatient (CLI) | payer MEDICARE, SELFPAY | END | disposition home or self-care (01) | LOC: LABSPEC 13:59 | PROVIDERS: PCP Internal Medicine; Visit Provider Nurse Practitioner Family | DX: R30.0 Dysuria (principal) | CPT/HCPCS: 87086; 87088; 87186 ==